=== PATIENT | female | born 1945 | race Caucasian/White ===

== ENCOUNTER 2020-10-21 09:43 | Outpatient (CLI) | payer MEDICARE, BC, SELFPAY ==
--- NOTE | ~2020-10-21 | MM_ITS ---
EXAMINATION: MM screening reji BI w mariela HISTORY: Screening mammogram TECHNIQUE: Craniocaudal and mediolateral oblique 3-D tomosynthesis images were obtained and synthetic 2-D images were generated. CAD analysis was submitted and interpreted. COMPARISON: 05/06/2018 bilateral digital screening mammogram BREAST PARENCHYMAL COMPOSITION: The breasts are almost entirely fatty. FINDINGS: There is no evidence of suspicious mass, calcification, or architectural distortion to sugg est malignancy in either breast. There has been no suspicious interval change. IMPRESSION: 1. No mammographic evidence of malignancy. 2. Recommend routine screening mammography in one year. BI-RADS Category 1: Negative Reviewed, dictated and finalized at location A. HEALTH CARE COORDINATOR
== END 2020-10-21 09:44 | disposition home or self-care (01) ==
LOC: ANHIMG 09:49
PROVIDERS: PCP Internal Medicine; Visit Provider Internal Medicine
DX: Z12.31 Encounter for screening mammogram for malignant neoplasm of breast (principal)
CPT/HCPCS: 77063; 77067

== ENCOUNTER 2021-10-07 13:53 | Outpatient (CLI) | payer MEDICARE, BC, SELFPAY ==
--- NOTE | ~2021-10-07 | CT_ITS ---
EXAMINATION: CT abdomen pelvis w con DATE: 10/07/2021 14:49 INDICATION: Abdominal distention. Left lower quadrant abdominal pain. TECHNIQUE: Computed tomography (CT) of the abdomen and pelvis was performed with 100 mL Omnipaque 350 intravenous contrast. Automated exposure control and iterative reconstruction technique were employe d. The dose-length product was 568.06 mGy-cm. COMPARISON: None. FINDINGS: The visualized portions of the lung bases demonstrate mild atelectasis and mild chronic jing g disease. No pleural effusion. The heart size is normal. No pericardial effusion. There is a small s liding hiatal hernia. There are cysts in the liver measuring up to 6 mm. The gallbladder is normal. C alcifications in the spleen are consistent with old granulomatous disease. The pancreas, adrenal glan ds, and left kidney are normal. There is a 6 mm cyst in right kidney. Pelvic floor relaxation is note d. There are no dilated loops of bowel. The appendix is normal. There are no pathologically enlarged lymph nodes. There is no free intraperitoneal fluid. There is mild lumbar spondylosis. IMPRESSION: 1. Small sliding hiatal hernia. 2. Pelvic floor relaxation. Reviewed, dictated and finalized at location E. DEPARTMENT BATTALION CHIEF
[2021-10-07 14:43] LABS: Estimated Glomerular Filt Rate > 60
== END 2021-10-07 13:54 | disposition home or self-care (01) ==
LOC: ANHIMG 13:58
PROVIDERS: PCP Internal Medicine; Visit Provider Nurse Practitioner Obstetrics & Gynecology
DX: R14.0 Abdominal distension (gaseous) (principal); K44.9 Diaphragmatic hernia without obstruction or gangrene
CPT/HCPCS: 74177; Q9967

== ENCOUNTER 2022-11-16 09:56 | Outpatient (CLI) | payer MEDICARE, BC, SELFPAY ==
--- NOTE | ~2022-11-16 | MM_ITS ---
EXAMINATION: MM screening reji BI w mariela HISTORY: Screening TECHNIQUE: Craniocaudal and mediolateral oblique 3-D tomosynthesis images were obtained and synthetic 2-D images were generated. CAD analysis was submitted and interpreted. COMPARISON: Comparison to multiple prior studies sequentially, with oldest reviewed study dated 05/06. BREAST PARENCHYMAL COMPOSITION: Breast composed of scattered areas of fibroglandular density FINDINGS: There is no evidence of suspicious mass, calcification, or architectural distortion to sugg est malignancy in either breast. There has been no suspicious interval change. IMPRESSION: 1. No mammographic evidence of malignancy. 2. Recommend routine screening mammography in one year. BI-RADS Category 1: Negative Reviewed, dictated and finalized at location A.
== END 2022-11-16 09:57 | disposition home or self-care (01) ==
LOC: ANHIMG 09:58
PROVIDERS: PCP Internal Medicine; Visit Provider Internal Medicine
DX: Z12.31 Encounter for screening mammogram for malignant neoplasm of breast (principal)
CPT/HCPCS: 77063; 77067

== ENCOUNTER 2023-03-09 14:06 | Outpatient (CLI) | payer MEDICARE, BC, SELFPAY ==
[2023-03-09 20:05] LABS: Thyroid Stimulating Hormone < 0.015 uIU/mL (0.465-4.680)
== END 2023-03-09 14:07 | disposition home or self-care (01) ==
LOC: ANHGOSHLAB 14:08
PROVIDERS: PCP Family Medicine; Visit Provider Family Medicine
DX: L65.9 Nonscarring hair loss, unspecified (principal)
CPT/HCPCS: 36415; 84443

== ENCOUNTER 2023-03-14 13:25 | Outpatient (CLI) | payer MEDICARE, BC, SELFPAY ==
[2023-03-14 20:11] LABS: Thyroid Stimulating Hormone < 0.015 uIU/mL (0.465-4.680)
[2023-03-17 08:14] LABS: Thyroid Peroxidase Antibodies 2 IU/mL (<9)
[2023-03-17 12:47] LABS: Thyrotropin Receptor Antibody <1.00 IU/L (<=2.00)
== END 2023-03-14 13:26 | disposition home or self-care (01) ==
LOC: ANHGOSHLAB 13:28
PROVIDERS: PCP Family Medicine; Visit Provider Family Medicine
DX: E05.90 Thyrotoxicosis, unspecified without thyrotoxic crisis or storm (principal)
CPT/HCPCS: 36415; 83519; 84439; 84443; 86376

== ENCOUNTER 2023-04-16 02:43 | Day surgery (SDC) | payer MEDICARE, BC, SELFPAY ==
[2023-03-29 13:04] VITALS: BMI 31.2
--- NOTE | 2023-04-16 06:41 | PM.HPGS ---
History of Present Illness History of Present Illness Consent: Risks, benefits, and alternatives have been discussed and questions answered. Patient agrees to proceed with procedure. Chief complaint: GERD,Dysphagia,Other Chest Pain Narrative: Cathy Anderson is a 78 year old female who was referred because of a persistent sore throat. This began after Thanksgiving last year. Her primary care provider gave her prescription for pantoprazole which he took for 30 days without any benefit. She then went to see an ENT physician who examined her briefly in the office. He did not use a scope but looking in the back of her throat he told her that her problem was gastrointestinal. She does not get heartburn. Rarely feels dysphagia in that she will feel of slight tightness in her chest during the meal when she is eating. She never however has had to stop eating. She does not regurgitate at night. Occasionally pills will seem to get stuck in the back of her throat when she is swallowing. She was restarted on pantoprazole by her new primary care provider and to get for another 30 days without any improvement. 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 Surgical History Surgical History H/O abdominal hysterectomy (~2005) Total knee replacement status (~2018) Social History Social History Smoking status: Never smoker Lack of Transportation: No Lack of Food: Never True Current Housing: I Have Housing Concerned About Future Housing: No Difficulty Paying Gas/Electric Bills: No Difficulty Paying for Meds: No Currently Unemployed: No Education: Trade/Vocational Certificate Difficulty w/ Childcare or Family Care: No Living arrangements: with family Spiritual care concerns: No Meds Home Medications and Allergies Home Medications Medication Instructions Recorded Confirmed Type pantoprazole 40 mg tablet,delayed 40 mg PO QAM #90 tabs 03/08/23 04/16/23 Rx release aspirin 81 mg tablet,delayed 81 mg PO DAILY 03/28/23 03/29/23 History release (Yari Low Dose Aspirin) biotin 5,000 mcg chewable tablet 5,000 mcg PO DAILY 03/28/23 03/29/23 History cholecalciferol (vitamin D3) 50 50 mcg PO DAILY 03/28/23 03/29/23 History mcg (2,000 unit) capsule docusate sodium 50 mg capsule 100 mg PO BID 03/28/23 03/29/23 History magnesium 250 mg tablet 250 mg PO DAILY 03/28/23 03/29/23 History Prevagen 1 tablet PO DAILY 03/29/23 03/29/23 History Vital Proteins Collagen 2 tbsp PO DAILY 03/29/23 03/29/23 History Viviscal Hair Growth 2 tablet PO DAILY 03/29/23 03/29/23 History lactobacillus combination no.8 3 1 cell PO DAILY 03/29/23 04/16/23 History billion cell capsule multivitamin with minerals 2 tablet PO DAILY 03/29/23 03/29/23 History (Hair,Skin and Nails tablet) vitamin E 400 unit tablet 45 mg PO DAILY 03/29/23 03/29/23 History Allergies Allergy/AdvReac Type Severity Reaction Status Date / Time Sulfa (Sulfonamide Allergy Intermediate Hives Verified 04/16/23 11:02 Antibiotics) Exam Const: General: alert Orientation/consciousness: patient oriented x3 Resp: Auscultation: clear to auscultation bilaterally Cardio: Rhythm: regular rhythm GI: GI Palp: Yes Soft to palpation and No Tenderness to palpation present (GI) Neuro: General: patient oriented x3 Assessment and Plan Assessment and plan (1) Dysphagia: Qualifiers: Dysphagia type: pharyngoesophageal phase Qualified Code(s): R13.14 - Dysphagia, pharyngoesophageal phase Code(s): R13.10 - Dysphagia, unspecified Status: Acute Assessment and Plan: EGD with possible biopsy or dilat
[2023-04-16 11:04] VITALS: BP 153/72; PULSE 79; RESP 17; TEMP 36.4; O2SAT 100
[2023-04-16] MEDS: LACTATED RINGERS 1,000 ML 150 ML IV CONT (11:09)
--- NOTE | 2023-04-16 11:57 | WPDANESEPPF ---
Anes - Initial Pre Proc Eval Procedure: Operation Date: 04/16/23 12:30 Proposed Procedures p Esophagogastroduodenoscopy - Rafal Lopez MD Date/Time: 04/16/23 11:57 Surgeon: Rafal Lopez MD Pre Op Diagnosis: GERD,Dysphagia,Other Chest Pain Patient Data Age: 78 Gender: F Height: 1.6 m Weight: 78.6 kg Last Vital Signs Temp 36.4 C 04/16/23 11:04 Pulse 79 04/16/23 11:04 Resp 17 04/16/23 11:04 BP 153/72 H 04/16/23 11:04 Pulse Ox 100 04/16/23 11:04 O2 Del Method Room Air 04/16/23 11:04 Allergies Allergy/AdvReac Type Severity Reaction Status Date / Time Sulfa (Sulfonamide Allergy Intermediate Hives Verified 04/16/23 11:02 Antibiotics) Home Medications Medication Instructions Recorded Confirmed Type pantoprazole 40 mg tablet,delayed 40 mg PO QAM #90 tabs 03/08/23 04/16/23 Rx release aspirin 81 mg tablet,delayed 81 mg PO DAILY 03/28/23 03/29/23 History release (Yari Low Dose Aspirin) biotin 5,000 mcg chewable tablet 5,000 mcg PO DAILY 03/28/23 03/29/23 History cholecalciferol (vitamin D3) 50 50 mcg PO DAILY 03/28/23 03/29/23 History mcg (2,000 unit) capsule docusate sodium 50 mg capsule 100 mg PO BID 03/28/23 03/29/23 History magnesium 250 mg tablet 250 mg PO DAILY 03/28/23 03/29/23 History Prevagen 1 tablet PO DAILY 03/29/23 03/29/23 History Vital Proteins Collagen 2 tbsp PO DAILY 03/29/23 03/29/23 History Viviscal Hair Growth 2 tablet PO DAILY 03/29/23 03/29/23 History lactobacillus combination no.8 3 1 cell PO DAILY 03/29/23 04/16/23 History billion cell capsule multivitamin with minerals 2 tablet PO DAILY 03/29/23 03/29/23 History (Hair,Skin and Nails tablet) vitamin E 400 unit tablet 45 mg PO DAILY 03/29/23 03/29/23 History Patient hx anesthesia problems: none Family hx anesthesia problems: none Results Review: All pre-operative results and documents have been reviewed as part of the pre-operative evaluation. 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 Surgical History Surgical History H/O abdominal hysterectomy (~2006) Total knee replacement status (~2019) Social History Social History Smoking status: Never smoker Lack of Transportation: No Lack of Food: Never True Current Housing: I Have Housing Concerned About Future Housing: No Difficulty Paying Gas/Electric Bills: No Difficulty Paying for Meds: No Currently Unemployed: No Education: Trade/Vocational Certificate Difficulty w/ Childcare or Family Care: No Living arrangements: with family Spiritual care concerns: No Anes - Eval Final PreProcedure Day of Procedure 04/16/23 11:57 Patient weight: overweight Heart: regular rate and rhythm Lungs: clear to auscultation Airway: Mallampati scale class II Neurological: alert and oriented Last oral intake: >/= 8 hours ASA classification: II Emergent: no Anesthetic plan: proceed Anesthesia type and monitoring: general GIVS and standard monitoring Results Review: All pre-operative results and documents have been reviewed as part of the pre-operative evaluation. Informed Consent: The patient's anesthetic plan and its attendant risks and benefits were discussed with the patient/family/POA. Questions were solicited and answers provided to the satisfaction of the patient/family/POA.
[2023-04-16 12:41] VITALS: BP 122/66; PULSE 71; RESP 17; O2SAT 100
[2023-04-16 12:51] VITALS: BP 122/63; PULSE 88; RESP 17; O2SAT 100
[2023-04-16 13:01] VITALS: BP 126/65; PULSE 71; RESP 17; O2SAT 100
== END 2023-04-16 13:05 | disposition home or self-care (01) ==
PROVIDERS: PCP Family Medicine; Visit Provider Internal Medicine Gastroenterology
PROC: 0DJ08ZZ Inspection of Upper Intestinal Tract, Via Natural or Artificial Opening Endoscopic (ICD-10-PCS; CPT 43235; principal; 2023-04-16 12:30)
DX: K22.70 Barrett's esophagus without dysplasia (principal); K29.50 Unspecified chronic gastritis without bleeding; K31.7 Polyp of stomach and duodenum; K29.70 Gastritis, unspecified, without bleeding; Z79.82 Long term (current) use of aspirin
CPT/HCPCS: 43239; 88305; J2704; J7120

== ENCOUNTER 2023-05-10 14:27 | Outpatient (CLI) | payer MEDICARE, BC, SELFPAY ==
[2023-05-10 17:19] LABS: Basophils Absolute Auto 0.1 K/mm3 (0.0-0.1); Basophils Percent Auto 0.9 % (0.2-1.2); Eosinophils Absolute Auto 0.2 K/mm3 (0-0.3); Eosinophils Percent Auto 2.8 % (0-4.4); Hematocrit 42.1 % (37.0-47.0); Hemoglobin 13.4 g/dL (12.0-15.0); Immature Granulocyte Absolute 0.01 K/mm3 (0.00-0.031); Immature Granulocyte Percent A 0.2 % (0-0.5); Lymphocytes Absolute Auto 1.28 K/mm3 (0.9-3.2); Lymphocytes Percent Auto 22.7 % (18.3-44.2); Mean Corpuscular HGB Conc 31.8 g/dl (32-36); Mean Corpuscular Hemoglobin 27.8 pg (26-34); Mean Corpuscular Volume 87.3 fl (80-100); Mean Platelet Volume 11.4 fl (7.4-10.4); Monocytes Absolute Auto 0.5 K/mm3 (0.1-0.6); Neutrophils Absolute Auto 3.7 K/mm3 (1.3-6.7); Neutrophils Percent Auto 65.4 % (45.5-73.1); Platelet Count Result 268 k/mm3 (150-375); Red Blood Count 4.82 M/mm3 (4.2-5.4); Red Cell Distribution Width 13.9 % (11.5-14.5); White Blood Count 5.6 K/mm3 (4.5-10.0)
[2023-05-10 17:43] LABS: Hepatitis C Virus Antibody Negative (Negative)
== END 2023-05-10 14:28 | disposition home or self-care (01) ==
LOC: ANHGOSHLAB 14:30
PROVIDERS: PCP Family Medicine; Visit Provider Family Medicine
DX: R53.83 Other fatigue (principal); L65.9 Nonscarring hair loss, unspecified; Z11.59 Encounter for screening for other viral diseases
CPT/HCPCS: 36415; 82607; 82728; 84443; 85025; 86803

== ENCOUNTER 2023-07-23 11:21 | Outpatient (CLI) | payer MEDICARE, BC, SELFPAY | END 2023-07-23 11:22 | disposition home or self-care (01) | LOC: ANHGOSHLAB 11:23 | PROVIDERS: PCP Family Medicine; Visit Provider Family Medicine | DX: E53.8 Deficiency of other specified B group vitamins (principal) | CPT/HCPCS: 36415; 82607 ==

== ENCOUNTER 2024-01-02 09:13 | Outpatient (CLI) | payer MEDICARE, BC, SELFPAY ==
[2024-01-02 20:54] LABS: Basophils Absolute Auto 0.1 K/mm3 (0.0-0.1); Basophils Percent Auto 0.9 % (0.2-1.2); Eosinophils Absolute Auto 0.2 K/mm3 (0-0.3); Eosinophils Percent Auto 3.5 % (0-4.4); Hematocrit 44.3 % (37.0-47.0); Hemoglobin 13.8 g/dL (12.0-15.0); Immature Granulocyte Absolute 0.01 K/mm3 (0.00-0.031); Immature Granulocyte Percent A 0.2 % (0-0.5); Mean Corpuscular HGB Conc 31.2 g/dl (32-36); Mean Corpuscular Hemoglobin 27.3 pg (26-34); Mean Corpuscular Volume 87.5 fl (80-100); Mean Platelet Volume 11.8 fl (7.4-10.4); Monocytes Absolute Auto 0.7 K/mm3 (0.1-0.6); Monocytes Percent Auto 11.6 % (2.6-8.5); Neutrophils Absolute Auto 3.4 K/mm3 (1.3-6.7); Neutrophils Percent Auto 57.8 % (45.5-73.1); Platelet Count Result 275 k/mm3 (150-375); Red Blood Count 5.06 M/mm3 (4.2-5.4); Red Cell Distribution Width 14.3 % (11.5-14.5); White Blood Count 5.8 K/mm3 (4.5-10.0)
[2024-01-02 21:03] LABS: Alanine Aminotransferase 17 U/L (6-35); Albumin Level 4.5 g/dL (3.5-5.1); Alkaline Phosphatase 73 U/L (38-126); Anion Gap 7 mmol/L (4-12); Aspartate Amino Transferase 28 U/L (14-36); Bilirubin,Total 0.6 mg/dL (0.2-1.3); Blood Urea Nitrogen 19 mg/dL (7-17); Calcium 10.6 mg/dL (8.4-10.2); Carbon Dioxide 28 mmol/L (22-30); Chloride 104 mmol/L (98-107); Cholesterol 204 mg/dL (0-200); Estimated Glomerular Filt Rate > 60; Glucose 93 mg/dL (65-110); HDL Direct 74 mg/dL; Potassium 4.9 mmol/L (3.4-5.0); Sodium 139 mmol/L (137-145); Triglycerides 93 mg/dL (<150)
[2024-01-02 21:14] LABS: LDL Cholesterol Direct 103 mg/dL
== END 2024-01-02 09:14 | disposition home or self-care (01) ==
LOC: ANHGOSHLAB 09:15
PROVIDERS: PCP Family Medicine; Visit Provider Family Medicine
DX: E53.8 Deficiency of other specified B group vitamins (principal); R13.14 Dysphagia, pharyngoesophageal phase; Z00.00 Encounter for general adult medical examination without abnormal findings; Z68.33 Body mass index [BMI] 33.0-33.9, adult; E66.9 Obesity, unspecified
CPT/HCPCS: 36415; 80053; 80061; 82607; 84443; 85025

== ENCOUNTER 2024-04-23 11:01 | Outpatient (CLI) | payer MEDICARE, BC, SELFPAY ==
[2024-04-24 22:58] LABS: Hexagonal Phase Confirm NEGATIVE (NEGATIVE); Lupus dRVVT Screen 33 sec (< OR = 45); PTT-LA Screen 42 sec (< OR = 40)
[2024-04-25 12:24] LABS: Homocysteine 11.4 umol/L (<10.4)
[2024-04-26 06:13] LABS: Antithrombin III Activity 103 % normal (80-135)
[2024-04-29 11:23] LABS: Protein S Antigen, Free 109 % normal (50-147)
[2024-04-29 14:46] LABS: Hex Phase Conf Chg Test Yes
== END 2024-04-23 11:02 | disposition home or self-care (01) ==
LOC: ANHLAB 11:04
PROVIDERS: PCP Family Medicine; Visit Provider Internal Medicine Hematology & Oncology
DX: Z86.718 Personal history of other venous thrombosis and embolism (principal)
CPT/HCPCS: 36415; 83090; 85300; 85303; 85306; 85598; 85613; 85730; 86146

== ENCOUNTER 2024-05-07 09:34 | Outpatient (CLI) | payer MEDICARE, BC, SELFPAY ==
--- NOTE | ~2024-05-07 | US_ITS ---
EXAMINATION: US venous doppler [facility] DATE: 05/07/2024 10:29 INDICATION: Left lower limb pain. TECHNIQUE: Grayscale ultrasound images without and with compression and Doppler ultrasound images of the bilateral lower extremity veins were obtained. COMPARISON: None. FINDINGS: The visualized portions of right common femoral vein, profunda (deep) femoral vein, femoral vein, pop liteal vein, posterior tibial veins, peroneal veins, gastrocnemius vein and greater saphenous vein ou tflow are patent. The visualized portions of left common femoral vein, profunda femoral vein, femoral vein, popliteal v ein, posterior tibial veins, peroneal veins, gastrocnemius vein and greater saphenous vein outflow ar e patent. IMPRESSION: 1. No deep venous thrombosis in either lower limb. Reviewed, dictated and finalized at location B.
== END 2024-05-07 09:35 | disposition home or self-care (01) ==
PROVIDERS: PCP Family Medicine; Visit Provider Internal Medicine Hematology & Oncology
DX: Z86.718 Personal history of other venous thrombosis and embolism (principal)
CPT/HCPCS: 93970

== ENCOUNTER 2024-05-16 13:10 | Outpatient (CLI) | payer MEDICARE, BC, SELFPAY ==
--- NOTE | ~2024-05-16 | DEXA_ITS ---
Bone Density Report Name: POLLY MART Age: 79 Sex: Female Ethnicity: White Date of : 1945 Indication: postmenopausal; screening for osteoporosis; height loss; history of glucocorticoids; asthma or emphysema; hysterectomy; Referring Provider: ALESSANDRO SETH Study: Bone densitometry was performed. Exam Date: May 16, 2024 Accession number: [id number] Bone Density: Region BMD T-score Z-score Classification AP Spine(L1-L4) 0.775 -2.5 0.0 Osteoporosis Femoral Neck (Left) 0.677 -1.6 0.6 Osteopenia Total Hip (Left) 0.952 0.1 2.0 Normal Femoral Neck (Right) 0.751 -0.9 1.3 Normal Total Hip (Right) 0.956 0.1 2.0 Normal Total Hip Mean 0.954 0.1 2.0 Normal World Health Organization criteria for BMD impression classify patients as: Normal (T-score at or above -1.0), Osteopenia (T-score between -1.0 and -2.5), or Osteoporosis (T-score at or below -2.5). 10-year Fracture Risk: FRAX not reported because: Some T-score for Spine Total or Hip Total or Femoral Neck at or below -2.5 Clinical Information Provided by Patient: Has taken Glucocorticoids Has used the following medications: Vitamin D, Calcium Has the following medical conditions: Asthma or Emphysema, Hysterectomy Patient maximum height was 64 Menopause Age: 47 No regular weight bearing exercise Does not regularly consume dairy products Drinks caffeinated beverages Onset of menses at age 14 Impression: The patient has osteoporosis, based on the Total Spine T-score. The patient has risk factors, including: history of glucocorticoid therapy. Discussion: INCREASED RISK OF FRACTURE. BONE DENSITY IS UNDESIRABLY LOW AT ONE OR MORE SKELETAL SITES, CONSISTENT WITH POSTMENOPAUSAL OSTEOPOROSIS. This patient's lowest T-score meets the World Health Organization's (WHO) criteria for osteoporosis at one or more sites (T-score -2.5 or below). In untreated patients, the risk of osteoporotic fracture increases approximately two-fold for each 1.0 SD decrease in T-score. Low bone density is not the only risk factor for fracture; also consider factors such as patient's age, frailty or poor health, risk of falling, risk of injury, previous osteoporotic fracture, family history of osteoporosis, cigarette smoking, low body weight, etc. Not everyone with low bone mineral density has osteoporosis; osteomalacia and other metabolic bone disorders should also be considered. Patients who have osteoporosis should be evaluated for specific diseases and conditions (secondary causes) that may cause or contribute to bone loss. The [place] [employer] Endocrinologists (AACE) and National Osteoporosis Foundation (NOF) recommend pharmacologic intervention for all postmenopausal women whose T-score is in this range. The patient should follow a health
== END 2024-05-16 13:11 | disposition home or self-care (01) ==
LOC: ANHIMG 13:11
PROVIDERS: PCP Family Medicine; Visit Provider Family Medicine
DX: Z78.0 Asymptomatic menopausal state (principal); Z13.820 Encounter for screening for osteoporosis; M81.0 Age-related osteoporosis without current pathological fracture; M85.852 Other specified disorders of bone density and structure, left thigh
CPT/HCPCS: 77080

== ENCOUNTER 2024-12-05 08:03 | Outpatient (CLI) | payer MEDICARE, BC, SELFPAY ==
--- NOTE | ~2024-12-05 | MM_ITS ---
EXAMINATION: MM screening reji BI w mariela HISTORY: Screening TECHNIQUE: Craniocaudal and mediolateral oblique 3-D tomosynthesis images were obtained and synthetic 2-D images were generated. CAD analysis was submitted and interpreted. COMPARISON: Comparison to multiple prior studies sequentially, with oldest reviewed study dated 05/06. BREAST PARENCHYMAL COMPOSITION: Not Dense: The breasts are almost entirely fatty. FINDINGS: There is no evidence of suspicious mass, calcification, or architectural distortion to sugg est malignancy in either breast. There has been no suspicious interval change. IMPRESSION: 1. No mammographic evidence of malignancy. 2. Recommend routine screening mammography in one year. BI-RADS Category 1: Negative Reviewed, dictated and finalized at location A.
--- OUTSIDE RECORDS SUMMARY | 2024-12-05 08:07 | XMS_ITS | CONTINUITY OF CARE DOCUMENT ---
Author Name rush, rush Address Unknown Organization [facility] Address [address] [facility] [address] [place] [address] Phone [phone] Care Team Providers Care Disassembler Name Role Phone Dale Hyde MD Unavailable TOMASZ LIRA MD Unavailable TOMASZ LIRA MD Unavailable [phone] PROBLEMS Condition Status Date Provider Notes Other symptoms involving car diovascular system active Dale Hyde MD Chest pain active Dale Hyde MD Heartburn active Dale Hyde MD Leg weakness, bilateral active Dale Hyde MD Altered consciousness, potential TIA active Mario Flores MD High blood pressure active Dale Hyde MD ENCOUNTERS Date Type Provider Location Encounter Diag nosis - In-person encounter Office Visit Dale Hyde MD [facility] High blood pressure - In-person encounter Office Visit Dale Hyde MD [facility] - In-person encounter Office Visit Dale Hyde MD [facility] - In-person encounter Office Visit Mario Flores MD [facility] Altered consciousness, potential TIA - In-person encounter Office Visit Dale Hyde MD [facility] - In-person encounter Office Visit Dale Hyde MD [facility] - In-person encounter Office Visit Dale Hyde MD [facility] - In-person encounter Office Visit Dale Hyde MD [facility] Other symptoms involving cardiovascular systemChest painHeartburnLeg weakness, bilateral VITAL SIGNS Date Observation Value Provider Body Mass Index (Ratio) 28.49 kg/m2 Jada Hyde MD blood pressure, diastolic 96 mm[Hg] Da mana Ale blood pressure, systolic 158 mm[Hg] Dac ia Ale oxygen saturation, oximetry 97 % Loli Ale respiratory rate E&M 18 /min Loli V oss pulse rate 100 /min Loli Ale weight E&M 166 [lb_av] Loli Ale height E&M 64 [in_i] Loli [place] Body Mass Index (Ratio) 27.80 kg/m2 Jada Hyde MD blood pressure, diastolic 70 mm[Hg] [facility], systolic 120 mm[Hg] Gurvinder barton [place] oxygen saturation, oximetry 92 % [facility] respiratory rate E&M 16 /min [facility] 73 /min [facility] weight E&M 162 [lb_av] Elena Reed height E&M 64 [in_i] [facility] Body Mass Index (Ratio) 27.29 kg/m2 Jada Hyde MD blood pressure, cuff size large Ke rri Bong blood pressure, diastolic 80 mm[Hg] Ke rri Bong blood pressure, systolic 130 mm[Hg] Yesika Woody oxygen saturation, oximetry 98 % Norma Woody respiratory rate E&M 18 /min Norma villatoro pulse rate 78 /min Norma Goodson lder weight E&M 159 [lb_av] Norma Goodson lder height E&M 64 [in_i] Norma Goodson lder Body Mass Index (Ratio) 26.95 kg/m2 Tim Plurad blood pressure, cuff size regular Cy olvin Weaver blood pressure, diastolic 80 mm[Hg] Cy olvin Weaver blood pressure, systolic 150 mm[Hg] Praveena emma Weaver oxygen saturation, oximetry 97 % Betty Weaver respiratory rate E&M 18 /min Bettyemma Weaver pulse rate 67 /min Bettyemma Mcbride l weight E&M 157 [lb_av] Betty Campbel l height E&M 64 [in_i] Betty Campbel l Body Mass Index (Ratio) 31.96 kg/m2 Jada Hyde MD blood pressure, resting No Nasreen Carmona blood pressure, diastolic 84 mm[Hg] Ofelia Carmona blood pressure, systolic 137 mm[Hg] Jena Carmona oxygen saturation, oximetry 98 % Susana Carmona respiratory rate E&M 18 /min David Carmona pulse rate 88 /min Susana morrison weight E&M 186.2 [lb_av] Susana meyer height E&M 64 [in_i] Susana morrison blood pressure, diastolic 70 mm[Hg] Ofelia Carmona blood pressure, systolic 130 mm[Hg] eJna Carmona pulse rate 78 /min Susana morrison oxygen saturation, oximetry 97 % Susana Carmona respiratory rate E&M 16 /min David Carmona Body Mass Index (Ratio) 31.75 kg/m2 Nasreen Carmona weight E&M 185 [lb_av] Susana morrison blood pressure, diastolic 81 mm[Hg] Ofelia Carmona blood pressure, systolic 142 mm[Hg] Jena Carmona pulse rate 80 /min Susana morrison oxygen saturation, oximetry 93 % Susaan Carmona respiratory rate E&M 16 /min David Carmona Body Mass Index (Ratio) 32.40 kg/m2 Nasreen Carmona weight E&M 188.8 [lb_av] Susana meyer blood pressure, diastolic 82 mm[Hg] Me coates Bravo blood pressure, systolic 148 mm[Hg] Karely reyes Bravo pulse rate 74 /min Rosalva Bravo oxygen saturation, oximetry 98 % Rosalva Bravo respiratory rate E&M 14 /min Rosalva Bravo Body Mass Index (Ratio) 32.78 kg/m2 Ekaterina michelle Bravo height E&M 64 [in_i] Rosalva Bravo weight E&M 191 [lb_av] Rosalva Bravo ALLERGIES Allergy Name Onset Date Reaction Criticality Status SULFA Low Criticality active RESULTS Date Observation Value Provider Reference Range Interpretation Location rapid plasma reagin antibody, serum NON-REACTIVE [facility] NON-REACTIVE Normal folate, serum 18.4 ng/mL [facility] Normal B-12, serum 1213 pg/mL [facility] 200-1100 High prothrombin time (patient) 10.0 s [facility] 9.0-11.5 Normal international normalized ratio (INR) 1.0 [facility] Normal basophils as percent of blood leukocytes 0.9 % [facility] Normal eosinophils as percent of blood leukocytes 3.3 % [facility] Normal monocyte count, blood 8.3 % [facility] Normal lymphocyte count, blood 35.0 % [facility] Normal neutrophils as percent of blood leukocytes 52.5 % [facility] Normal basophils, absolute, manual 41 cells/mcL [facility] 0-200 Normal eosinophils, absolute, manual 152 cells/mcL [facility] 15-500 Normal monocytes, absolute, manual 382 cells/mcL [facility] 200-950 Normal lymphocytes, absolute 1610 CELLS/UL [facility] 850-3900 Normal Absolute Neutrophil count 2415 cells/mcL [facility] 6393-1974 Normal mean platelet volume 10.6 fL [facility] 7.5-12.5 Normal platelet count 257 THOUSAND/UL [facility] 140-400 Normal red blood cell distribution width 12.8 % [facility] 11.0-15.0 Normal mean corpuscular hemoglobin concentration, RBC 33.2 G/DL [facility] 32.0-36.0 Normal mean corpuscular hemoglobin, RBC 27.7 pg [facility] 27.0-33.0 Normal mean corpuscular volume, RBC 83.6 fL [facility] 80.0-100.0 Normal hematocrit, blood 43.4 % [facility] 35.0-45.0 Normal hemoglobin electrophoresis, blood 14.4 [facility] 11.7-15.5 Normal erythrocyte (RBC) count 5.19 MILLION/UL [facility] 3.80-5.10 High leukocyte (white blood cells) count, blood 4.6 THOUSAND/UL [facility] 3.8-10.8 Normal calcium, serum 9.6 mg/dL [facility] 8.6-10.4 Normal carbon dioxide, venous blood 32 mmol/L [facility] 20-32 Normal chloride, serum 104 mmol/L [facility] 98-110 Normal potassium, serum 4.2 mmol/L [facility] 3.5-5.3 Normal sodium, serum 140 mmol/L [facility] 135-146 Normal urea nitrogen/creatinine ratio, serum NOT APPLICABLE (calc) [facility] 6-22 Estimated Glomerular Filtration Rate (calc) 97 mL/min/{1.73_ m2} [facility] > OR = 60 Normal creatinine, serum 0.73 mg/dL [facility] 0.60-0.93 Normal urea nitrogen, blood 19 mg/dL [facility] 7-25 Normal blood glucose, random 97 mg/dL [facility] 65-99 Normal thyroid stimulating hormone, serum 2.12 u[IU]/mL [facility] 0.40-4.50 Normal free thyroxine index 2.3 [facility] 1.4-3.8 Normal thyroxine, serum, total 7.3 ug/dL [facility] 5.1-11.9 Normal triiodothyronine resin uptake 31 % [facility] 22-35 Normal cholesterol, non-HDL, total 134 MG/DL (CALC) [facility] <130 High cholesterol/HDL ratio, serum, percent 2.8 (calc) [facility] <5.0 Normal LDL cholesterol, serum 117 MG/DL (CALC) [facility] High triglyceride, serum, fasting 76 mg/dL [facility] <150 Normal HDL cholesterol, serum 75 mg/dL [facility] >50 Normal cholesterol, serum 209 mg/dL [facility] <200 High HISTORY OF MEDICATION USE Medication Status Instructions Dates Provider Indications Com ments PROBIOTIC active once daily Susana Carmona MAGNESIUM CAPSULE active once daily Susana Carmona STOOL SOFTENER CAPSULE completed 2 tabs twice daily - 4 Elena Reed NAPROXEN 500 MG ORAL TABLET completed twice daily - 7 Susana Carmona PROTONIX 40 MG ORAL TABLET DELAYED RELEASE completed ONE TAB. DAILY 4 - 3 Susana Carmona VITAMIN B-12 2500 MCG TABS (CYANOCOBALAMIN ) active One tablet daily 4 Rosalva Bravo GINKOBA TABLET active once daily 4 Rosalva Bravo TURMERIC CURCUMIN 500 MG ORAL CAPSULE completed twice daily 4 - 7 Susana Carmona [facility] STOOL SOFTENER 100 MG ORAL CAPSULE active 2 tabs 2x daily 4 Elena Reed COLLAGEN PLUS VITAMIN C CAPSULE completed three times daily 4 - 0 Betty Owen GABAPENTIN 100 MG ORAL CAPSULE active 2 tabs 2x daily 4 Elena Reed VITAMIN D TABLET active 2000 international units daily 4 Rosalvaeric Shineann ASPIRIN 81 MG ORAL TABLET active ONE TAB. DAILY 4 Dale Hyde MD BIOTIN 5000 CAPSULE completed once daily 4 - 7 Susana Carmona SOCIAL HISTORY Date Observation Value Provider social history E&M Patient has n ever smoked. Smoking History: P atasim has never smoked. Dale Hyde MD social history reviewed E&M revi ewed - no changes required Dale Hyde MD seatbelt usage 100 % [facility] exercise type housework Loli Ale physical exercise, f requency, days per week daily Loli [place] smoking status Never smoker [facility] exercise type housework Jasmin hermosillo physical exercise, f requency, days per week daily Jasmin Watson seatbelt usage 100 % Jasmin armenta smoking status Never smoker Jasmin armenta seatbelt usage 100 % Jasmin armenta smoking status Never smoker Jasmin armenta seatbelt usage 100 % Jasmin armenta smoking status Never smoker Jasmin armenta social history E&M Patient has n ever smoked. Smoking History: P atasim has never smoked. Dale Hyde MD social history reviewed E&M revi ewed - no changes required Dale Hyde MD number of grandchildren Dalenedra Reed smoking status Never smoker Elena Luisa farley smoking status Never smoker Norma Aamirariellatam donahue number of grandchildren Mario Flores MD social history E&M Patient has n ever smoked. Smoking History: P evelina has never smoked. Mario Flores MD social history reviewed E&M revi ewed - no changes required Mario Flores MD smoking status Never smoker Betty Weirdarien rowe number of grandchildren Dale Hyde MD U rian Hyde MD social history reviewed E&M revi ewed - no changes required Dale Hyde MD smoking status Never smoker Susana Whitlock social history reviewed E&M revi ewed - no changes required Dale Hyde MD smoking status Never smoker Susana Whitlock social history reviewed E&M revi ewed - no changes required Dale Hyde MD smoking status Never smoker Susana Whitlock social history E&M Patient has n ever smoked. Smoking History: P evelina has never smoked. Dale Hyde MD social history reviewed E&M revi ewed - no changes required Dale Hyde MD smoking status Never smoker Dale Hyde MD FAMILY HISTORY Family Member Condition Mother Family History of Co ronary Artery Disease: INSURANCE PROVIDERS Payer name Policy type / Coverage type [place] [employer] party ID [facility] [id number] [place] Medicare [id number] ADVANCE DIRECTIVES Name Date DISCUSSED - NO DECISION MADE TREATMENT PLAN Date Name Performer Cardiology follow up :patient reports rushing around today and to get into appointment today. BP today: 158/96 P rior BP: 120/70 (05/10/2018) Dale Hyde MD Cardiology follow up Dale farley MD Cardiology follow up Dale Qayyu m MD Cardiology Dale Hyde MD Cardiology:she is s/ p cath that showed no angiographic CAD. Unknown what the cause is although could be GI. Dale Hyde MD Cardiology Follow u p Dale downing MD Cardiology Follow u p:She has typical chest pain and even though her stress test was unremarkable she may have triple vessel or balanced ischemia. The risks and benefits of the procedure, including but not limited the risk of heart attack, , stroke, bleeding, kidney failure, and loss of limb as well as the alternative of continued medical therapy, stress testing or bypass surgery were discussed with the patient and any present family members and the patient wishes to proceed with cardiac cath and stenting. The patient and family had opportunity to discuss this with us. Written material including informed consent was given out. Dale Hyde MD Cardiology Follow up :Hx. acid reflux. Doubt that these symptoms were reflux related. Will obtain Lexiscan stress test. Maroi Flores MD Cardiology Follow up :Head CT will be done. FMHx. dementia. Check sleep study since she has frequent forgetfullness and daytime memory loss. Mario Flores MD Cardiology Follow up :Had a normal stress test before. CP symptoms now. EKG unremarkable compared to baseline. Mario Flores MD Cardiology:No further chest pain . Dale Hyde MD Cardiology Dale Hyde MD Cardiology Dale Hyde MD Cardiology: She had discomfort in her chest. Had a stress test that was negative. She was put on protonix and this alleviated her symptoms. I am going to have her stop her protonix and see whether the symptoms come back or not. If they do she can either take tums or restart protonix. Dale Hyde MD Cardiology:Protonix alleviated her symptoms. Would recommend patient see a tour counselor for further work-up. Dale Hyde MD Cardiology:Stress te st (11/11/2015) S ummary 1 . Myocardial scintigraphy is normal without evidence for previous myocardial infarction or reversible ischemia. 2 . Normal left ventricular size and function with a calculated ejection fraction of 57%. 3 . Moderately impaired exercise capacity The patient achieved 111% of age predicted maximal heart rate. No chest pain. Dale Hyde MD Cardiology: W ill get stress test. Dale Hyde MD Date Name LIPID PANEL PROTHROMBIN TIME WIT H INR VITAMIN B12/FOLATE, SERUM PANEL RPR (MONITOR) W/REFL TITER THYROID PANEL WITH T SH, 3RD GENERATION BASIC METABOLIC PANE L W/EGFR CBC (INCLUDES DIFF/P LT) Sleep Study Cardiac Cath - Left - CNE STR - Adenosine Sleep Study Home CT Head without cont rast Carotid Duplex Bilat eral Complete Echo Holter Monitor 24 Hr Complete Echo STR - Nuclear HISTORY OF PROCEDURES Procedure Date Procedure Name Provider Procedure Notes S tatus Cardiolite, 2 units Dale Hyde MD completed SPECT Images Humble Pfeiffer MD complet ed Stress EKG Humble Pfeiffer MD completed Holter, 24 or 48 Dale Hyde MD com pleted SNOMED-CT: 72719420 Physical Exam, Performed: Pulse Exam of Foot Dale Hyde MD completed EKG Dale Hyde MD completed SNOMED-CT: 808655942 382883 Current Medications Documented Dale Hyde MD completed SNOMED-CT: 91858622 Physical Exam, Performed: Pulse Exam of Foot Dale Hyde MD completed SNOMED-CT: 763567355 527184 Current Medications Documented Dale Hyde MD completed SNOMED-CT: 87520012 Physical Exam, Performed: Pulse Exam of Foot Dale Hyde MD completed SNOMED-CT: 792546879 542545 Current Medications Documented Dale Hyde MD completed Stress EKG Clif Amaya MD complete d Cardiolite, 2 units Mario case MD completed SPECT Images Mario Flores MD completed SNOMED-CT: 43199796 Physical Exam, Performed: Pulse Exam of Foot Dale Hyde MD completed EKG Dale Hyde MD completed SNOMED-CT: 013139943 689618 Current Medications Documented Dale Hyde MD completed
--- OUTSIDE RECORDS SUMMARY | 2024-12-05 08:07 | XMS_ITS | Continuity of Care Document ---
Author Organization [facility] Address [address] [place] [address] [address] [place] [address] Phone Care Team Providers Care Charge Histotechnologist Name Role Phone Elizabeth Herring Unavailable Unavailable Procedures Procedure Date Eye Exam Established Pt Office/outpatient Visit, Est Advance Directives Directive Yes / No Effective Date File Name No Information Encounters Encounter Description Practice Location Reason(s) For Visit Diagnoses Date Provider Providers Copied on Encounter [facility], [address] [place] [address] [address], [place], [place], [id number], tel:[phone] [facility] No Information [id number] 0 Nevaeh Johnson. [address] [facility] , [address], [place], [place], [facility], . tel:[phone] Office/outpat ient Visit, Est [facility], [address] [place] [address] [address], [place], [place], [id number], tel:[phone] [facility] [place] No Information 7-200 7 Nevaeh Louise [address] [facility] , [address], [place], [address], [place]. tel:[phone] Family History Family Member Type Diagnosis Age [...]
--- OUTSIDE RECORDS SUMMARY | 2024-12-05 08:07 | XMS_ITS | Clinical Summary ---
Author Organization [facility] Address [address] [place] [address] Phone Care Team Providers Care Mud Mixer Operator Name Role Phone Unavailable Primary Care Provider Unavailabl e Social History Tobacco Use Types Packs/Day Years Used Date Smoking Tobacco: Never Assessed Comments Unknown Sex and Gender Information Value Date Recorded Sex Assigned at Not on file Legal Sex Female 7:38 AM CDT Gender Identity Not on file Sexual Orientation Not on file Plan of Treatment Health Maintenance Due Date Last Done Comments DEXA Bone Density 1945 Hepatitis C Virus (HCV) Screening 1945 TdaP Immunization 1945 Zoster Immunization (1 of 2) 1997 Pneumococcal Immunization (50+ years) (2 of 2 - PPSV23) 06/14/2016 06/14/2015 Respiratory Syncytial Virus (RSV) Immunization (Adult) (1 - 1-dose 75+ series) 2022 Influenza Immunization (#1) 04/27/202405/27, 06/02/2015, 07/09/2014, Additional history exists SARS-COV-2 Immunization ( season) 2024 06/27/2021, 11/14/2020, 10/24/2020 Hepatitis B Immunization Aged Out No longer eligible based on patient's age to complete this topic Meningococcal Immunization (ACWY) Aged Out No longer eligible based on patient's age to complete this topic Rotavirus Immunization Aged Out No lo nger eligible based on patient's age to complete this topic
--- OUTSIDE RECORDS SUMMARY | 2024-12-05 08:08 | XMS_ITS | Clinical Summary ---
Author Organization [facility] Address [address] [place] [address] Care Team Providers Care Ict Support Engineer Name Role Phone Stew Phan MD Unavailable [phone] Lashae Patel MD Primary Care Provider [phone] Source Comments [facility],non-owned Affiliates and Associated Physician Practices is amultiple site organization consisting of ambulatory clinics and hospital sitesin [place], [place], [place] and [place]. This disclosure is being madepursuant to the Care Everywhere program and may not contain all information available regarding this patient. Last updated 18.[facility] Allergies Active Allergy Reactions Criticality Noted Date Comments Levofloxacin Rash Medium 07/22/2019 Sulfamethoxazole Unknown 05/21/2011 Trimethoprim Unknown 05/21/2011 Medications * Be aware that medications may not be up to date on this document. Always verify current medications with the patient. Medication Sig Dispensed Refills Start Date End Date Status magnesium 250 MG tablet every 24 hours Active Vitamin D3, cholecalciferol, 50 MCG (1999 UT) tablet Take 1 (one) tablet by mouth once daily Active docusate sodium (COLACE) 100 MG capsule Take 1 (one) capsule by mouth once daily as needed for Constipation Active Ginkgo Biloba (GINKOBA PO) Take 120 mg by mouth Active [place]-3 Krill Oil 500 MG Active Biotin 5000 MCG Active vitamin E (TOCOPHERYL) 400 UNIT tablet Take by mouth once daily Active Other Alteril (sleep aid) Active lactobacillus extra strength (Florajen) capsule Take 1 (one) capsule by mouth once daily Probiotic Active Multiple Vitamins-Mineral s (HAIR SKIN AND NAILS FORMULA PO) Active cyanocobalamin (Vitamin B-12) 1000 MCG tablet Take 1 (one) tablet by mouth once daily Active Apoaequorin (PREVAGEN PO) Active acetaminophen (Tylenol) 500 MG capsule Take 2 (two) capsules by mouth 3 times daily Take 3x/day for 10 days, then as needed for pain 05/28/2024 Active omeprazole (PriLOSEC) 20 MG capsule Take 1 (one) capsule by mouth once daily for 42 days 42 capsule 05/28/2024 Active aspirin EC (Ecotrin) 81 MG tablet Take 1 (one) tablet by mouth once daily Resume once 3 weeks of eliquis is complete 05/29/2024 Active apixaban (Eliquis) 2.5 MG tablet Take 1 (one) tablet by mouth 2 times daily for 21 days 42 tablet 05/29/2024 Active oxyCODONE, immediate release, (Roxicodone) 5 MG tabletIndication s:Post-operative pain Take 1 (one) to 2 (two) tablets by mouth every 4 hours as needed for pain 42 tablet 07/22/2024 Active celecoxib (CeleBREX) 200 MG capsule Take 1 (one) capsule by mouth 2 times daily 180 capsule 2 07/28/2024 Active amoxicillin (Amoxil) 500 MG capsule Take 4 (four) capsules by mouth pre-Procedure once for 1 dose Take 4 pills 1hr prior to dental appointment 12 capsule 1 11/19/2024 11/19/2024 Active Problems Problem Noted Date Diagnosed Date Status post total left knee replacement 05/28/20 24 Primary osteoarthritis of left knee 02/02/2023 History of total right knee replacement 01/15/20 20 Arthritis of knee 10/30/2019 Gastroesophageal reflux disease 07/29/2019 Lesion of ulnar nerve 07/29/2019 Essential hypertension 07/16/2017 Encounters Date Type Department Care Team Description 11/19/2024 Telephone [facility] [address] [place] [address], [address] [address] Stew Phan MD Patient Requested Call (patient called in to request antibiotics for an upcoming dental procedure) 09/17/2024 Telephone [facility] [address], [address] [place] [address] Stew Phan MD Patient Requested Call (Patient called in to request a prescription for antibotics required for her upcoming dental procedure) from Last 3 Months Family History Medical History Relation Name Comments Alzheimer's Disease Father Leukemia Mother Relation Name Status Comments Father Mother Social History Tobacco Use Types Packs/Day Years Used Date Smoking Tobacco: Never Smokeless Tobacco: Never Tobacco Cessation:Counseling Given: Not Answered Alcohol Use Standard Drinks/Week Comments Never 0 (1 standard drink = 0.6 oz pur e alcohol) AUDIT-C Answer Date Recorded Q1: How often do you have a drink containing alcohol? Monthly or less 05/28/2024 Q2: How many drinks containi ng alcohol do you have on a typical day when you are drinking? Patient does not drink Q3: How often do you have si x or more drinks on one occasion? Never 05/28/2024 PHQ-2 Answer Date Recorded Patient Health Questionnaire-2 Score 0 07/08/2024 Hunger Vital Sign Answer Date Recorded Within the past 12 months, y ou worried that your food would run out before you got the money to buy more. Never true 05/28/20 24 Within the past 12 months, t he food you bought just didn't last and you didn't have money to get more. Never true 05/28/2024 Sex and Gender Information Value Date Recorded Sex Assigned at Not on file Gender Identity Not on file Sexual Orientation Not on file Last Filed Vital Signs Vital Sign Reading Time Taken Comments Blood Pressure 129/49 05/29/2024 10:17 AM CDT Post ambulation. Shaheed on therapy Dinamap Pulse 71 05/29/2024 10:17 AM CDT Temperature 36.7 C (98.1 F) 05/29/2024 8:01 AM CDT Respiratory Rate 17 05/29/2024 8:01 AM CDT Oxygen Saturation 98% 05/29/2024 9:2 7 AM CDT Inhaled Oxygen Concentration - - Weight 78.9 kg (174 lb) 05/28/2024 9:29 AM CDT Height 157.5 cm (5' 2 ) 05/28/2024 9:29 AM CDT Body Mass Index 31.83 05/28/2024 9:29 AM CDT Plan of Treatment Health Maintenance Due Date Last Done Comments BONE DENSITY TESTING 1945 MEDICARE AWV 12 MONTHS 1945 HEPATITIS C SCREENING 03/30/1965 DTAP/TDAP/TD VACCINES (1 - Tdap) 1966 PNEUMOCOCCAL VACCINE 50+ (1 of 1 - PCV) 1997 ZOSTER VACCINE (1 of 2) 1997 Respiratory Syncytial Virus (RSV) Vaccine Pt: or over 60 yrs (1 - 1-dose 75+ series) 2022 COVID-19 VACCINE (1 - 2023-2 5 season) 2024 DEPRESSION SCREENING 08/27/2024 07/08/2024 INFLUENZA VACCINE (Season Ended) 2025 HEPATITIS B VACCINE Aged Out No longe r eligible based on patient's age to complete this topic HIB VACCINE Aged Out No longer eligi ble based on patient's age to complete this topic HPV VACCINE Aged Out No longer eligi ble based on patient's age to complete this topic MENINGOCOCCAL (Group B) VACC INE SHARED DECISION-MAKING Aged Out No longer eligibl e based on patient's age to complete this topic MENINGOCOCCAL GROUPS A/C/Y/W VACCINE Aged Out No longer eligible b ased on patient's age to complete this topic Medical Devices Implanted Type Area Rn Call Center Device Identifier Shelf Expiration Date Model / Serial / Lot Cmnt Bone Djo Srg Cblt 40gm Hvisc Strl Implanted:Qty: 1 on 10/30/2019 by Stew Phan MD at [facility] Right: Knee [employer] 06/25/2020 [id number] / / [id number] Tray Tib 67mm Kn Cocr I Beam Implanted:Qty: 1 on 10/30/2019 by Stew Phan MD at [facility] Right: Knee [employer] 07/04/2029 [id number] / / [id number] Cmpnt Fem Kn Rt Cr Cmnt Prm Vngrd Intlk Implanted:Qty: 1 on 10/30/2019 by Stew Phan MD at [facility] Right: Knee [employer] 07/03/2029 [id number] / / [id number] Cmpnt Ptlr 28mm 1 Pg Wire Ascnt Arcm Kn Implanted:Qty: 1 on 10/30/2019 by Stew Phan MD at [facility] Right: Knee [employer] 09/20/2024 [id number] / / [id number] Brng [id number] Vngrd Arcm Kn Ant Stab Implanted:Qty: 1 on 10/30/2019 by Stew Phan MD at [facility] Right: Knee [employer] 10/02/2024 [id number] / / [id number] Brng [id number] Vngrd Arcm Kn Ant Stab Implanted:Qty: 1 on 05/28/2024 by Stew Phan MD at [facility] Left: Knee [employer] 07/10/2028 [id number] / / [id number] Cmnt Bone Plc R 40gm Grn Implanted:Qty: 1 on 05/28/2024 by Stew Phan MD at [facility] Left: Knee [employer] 08/26/2026 [id number] / / [id number] Tray Tib 71mm Kn Cocr I Beam Implanted:Qty: 1 on 05/28/2024 by Stew Phan MD at [facility] Left: Knee [employer] 12/01/2032 [id number] / / [id number] Cmpnt Ptlr Std 28mm 3 Pg Kn Ser A Implanted:Qty: 1 on 05/28/2024 by Stew Phan MD at [facility] Left: Knee [employer] [id number] / / [id number] Cmpnt Fem Kn Lt Cr Cmnt Prm Vngrd Intlk Implanted:Qty: 1 on 05/28/2024 by Stew Phan MD at [facility] Left: Knee [employer] 03/20/2034 [id number] / / [id number] Advance Directives * Full Code (Latest Code Status on File) Date Activated Date Inactivated Comments 05/28/2024 3:42 PM 05/29/2024 3:28 PM * Full Code Date Activated Date Inactivated Comments 10/30/2019 10:51 AM 11/02/2019 1:53 PM Care Teams Ict Support Engineer Relationship Specialty Start Date End Date Lashae Patel MD [address] [place] [id number] PCP - General Family Medicine 04/10/24 [place] [id number] [address] Orthopedic Surgery 07/22/19
--- OUTSIDE RECORDS SUMMARY | 2024-12-05 08:08 | XMS_ITS | Data Portability ---
Author Organization [facility] Address [address] [place] [address] [place] [address] Care Team Providers Care Model Set Artist Name Role Phone TOMASZ LIRA Primary Care Provider [phone] Assessment No assessment recorded. Plan of Treatment Reminders Order Date Submit Date Provider Last Modified By Organization Details Last Modified Time Details Appointments None recorded. Lab urinalysis , dipstick 2021 022 [email or web address], [address], [address], [place], [address], 14:53:31 Referral None recorded. Procedures None recorded. Surgeries None recorded. Imaging CT, abdomen + pelvis, w/ contrast 2021 022 [facility], [place], [address], 10:04:12 Medication Orders None recorded. Patient TargetsNo targets recorded. Patient InstructionsNo instructions recorded. Reason for Referral None Reported. Results Created Date Observation Date Name Description Value Unit Range Abnormal Flag Note LastModifiedBy Organization Detail LastModifiedTime 10/05/1910/05/2021 URINA LYSIS , WITH MICRO SCOPI C color, urine Yellow colorl ess, light yellow , yellow , dark yellow , straw, damari Not Available [facility] (Lab) [address], [place], [address], 10/09/2021 09:19:00 10/05/19 22 10/05/2021 URINA LYSIS , WITH MICRO SCOPI C clarity, urine Clear Not Available [facility] (Lab) [address], [place], [address], 10/09/2021 09:19:00 10/05/19 22 10/05/2021 URINA LYSIS , WITH MICRO SCOPI C glucose, urine Negati ve mg/dL negati ve Not Available [facility] (Lab) [address], [place], [address], 10/09/2021 09:19:00 10/05/19 22 10/05/2021 URINA LYSIS , WITH MICRO SCOPI C bilirubin, urine Negati ve mg/dL negati ve Not Available [facility] (Lab) [address], [place], [address], 10/09/2021 09:19:00 10/05/19 22 10/05/2021 URINA LYSIS , WITH MICRO SCOPI C ketones, urine Negati ve mg/dL negati ve Not Available [facility] (Lab) [address], [place], [address], 10/09/2021 09:19:00 10/05/19 22 10/05/2021 URINA LYSIS , WITH MICRO SCOPI C pH, urine 6.0 . 5.0-9. 0 Not Available [facility] (Lab) [address] [place], [address], 10/09/2021 09:19:00 10/05/19 22 10/05/2021 URINA LYSIS , WITH MICRO SCOPI C specific gravity, urine 1.018 . 1.001- 1.035 Not Available [facility] (Lab) [address] [place], [address], 10/09/2021 09:19:00 10/05/19 22 10/05/2021 URINA LYSIS , WITH MICRO SCOPI C blood, urine Negati ve negati ve Ascor bic Acid is prese nt in the urine which is known to cause false negat sabine resul ts for blood . Not Available [facility] (Lab) [address] [place], [address], 10/09/2021 09:19:00 10/05/19 22 10/05/2021 URINA LYSIS , WITH MICRO SCOPI C protein, UA Negati ve mg/dL negati ve Not Available [facility] (Lab) [address], [place], [address], 10/09/2021 09:19:00 10/05/19 22 10/05/2021 URINA LYSIS , WITH MICRO SCOPI C urobilinogen , urine <2.0 mg/dL <2.0 Not Available [facility] (Lab) [address], [place], [address], 10/09/2021 09:19:00 10/05/19 22 10/05/2021 URINA LYSIS , WITH MICRO SCOPI C nitrite, urine Negati ve negati ve Not Available [facility] (Lab) [address], [place], [address], 10/09/2021 09:19:00 10/05/19 22 10/05/2021 URINA LYSIS , WITH MICRO SCOPI C leukocyte esterase, urine Negati ve marilu/u L negati ve Not Available [facility] (Lab) [address], [place], [address], 10/09/2021 09:19:00 10/05/19 22 10/05/2021 URINA LYSIS , WITH MICRO SCOPI C WBC, urine 0-5 /hpf none, 0-5 Not Available [facility] (Lab) [address], [place], [address], 10/09/2021 09:19:00 10/05/19 22 10/05/2021 URINA LYSIS , WITH MICRO SCOPI C RBC, urine 0-2 /hpf none, 0-2 Not Available [facility] (Lab) [address], [place], [address], 10/09/2021 09:19:00 10/05/19 22 10/05/2021 URINA LYSIS , WITH MICRO SCOPI C bacteria, urine None /hpf none Not Available [facility] (Lab) [address], [place], [address], 10/09/2021 09:19:00 10/05/19 22 10/05/2021 URINA LYSIS , WITH MICRO SCOPI C squamous epithelial cells, urine Trace /hpf none abnormal Not Available [facility] (Lab) [address], [place], [address], 10/09/2021 09:19:00 10/05/19 22 10/05/2021 URINA LYSIS , WITH MICRO SCOPI C mucus, urine Few /hpf none, trace, few Not Available [facility] (Lab) [address], [place], [address], 10/09/2021 09:19:00 10/05/19 22 10/05/2021 CULTU RE: URINE result report SEE RESULT S BELOW Test: Cultu re: Urine Speci men Sourc e: Urine Voide d Speci men Type: Urine Speci men Date: 022 5:31 PM Resul t Date: 2021 8:16 AM Resul t Statu s: Final resul t Abnor mal: No Resul ting Lab: [facility] [address] [facility] [address] Tel: CULTU RE ----- ----- ----- --- No growt h in 1 day (dete ction level of 10,00 0 colon ies / ml.) Not Available [facility] (Lab) [address], [place], [address], 10/09/2021 09:19:01 10/05/19 22 10/05/2021 urina lysis , dipst ick Leukocytes trace Not Available [facility] [address], [place], [address], 10/05/2021 14:39:12 10/05/19 22 10/05/2021 urina lysis , dipst ick Nitrite neg Not Available [facility] [address], [place], [address], 10/05/2021 14:39:12 10/05/19 22 10/05/2021 urina lysis , dipst ick Urobilinogen neg Not Available [facility] tiago [address], [place], [address], 10/05/2021 14:39:12 10/05/19 22 10/05/2021 urina lysis , dipst ick Protein trace Not Available [facility] [address], [place], [address], 10/05/2021 14:39:12 10/05/19 22 10/05/2021 urina lysis , dipst ick pH 5 Not Available [facility] [address], [place], [address], 10/05/2021 14:39:12 10/05/19 22 10/05/2021 urina lysis , dipst ick Blood trace Not Available [facility] [address], [place], [address], 10/05/2021 14:39:12 10/05/19 22 10/05/2021 urina lysis , dipst ick Specific Paxton 1.010 Not Available [facility] zandra [address], [place], [address], 10/05/2021 14:39:12 10/05/19 22 10/05/2021 urina lysis , dipst ick Ketone neg Not Available [facility] [address], [place], [address], 10/05/2021 14:39:12 10/05/19 22 10/05/2021 urina lysis , dipst ick Bilirubin neg Not Available [facility] [address], [place], [address], 10/05/2021 14:39:12 10/05/19 22 10/05/2021 urina lysis , dipst ick Glucose neg Not Available [facility] [address], [place], [address], 10/05/2021 14:39:12 10/05/19 22 10/05/2021 urina lysis , dipst ick Appearance clear Not Available [facility] guera [address], [place], [address], 10/05/2021 14:39:12 10/05/19 22 10/05/2021 urina lysis , dipst ick Color yellow Not Available [facility] [address], [place], [address], 10/05/2021 14:39:12 10/21/[address], abdom en + pelvi s, w/ contr ast No observ ation record ed. [facility] [address], [place], [address], 10/26/2021 18:46:52 Result Notes None recorded. Problems Name Problem SNOMED Code Status Onset Date Resolution Date Notes Provider Name and Address Organization Details Recorded Time Vaginiti s and vulvovag initis Completed 201210/04/2021 Vaginiti s and vulvovag initis, unspecif ied;Prac radha ID: 0001 [facility] 17:41:23 Menopaus al symptom 35055008 Completed 201310/04/2021 Menopaus al or female climacte bernie states;P shakira ID: 0001 Nisa hollingsworth [facility] 17:40:51 Adult health examinat ion Completed 201410/04/2021 Routine general medical examinat ion at a [facility] facility ;Practic e ID: 0001 [facility] 17:40:45 Speciali zed medical examinat ion Completed 201410/04/2021 Routine gynecolo gical examinat ion;Prac radha ID: 0001 Nisa Fabian [facility] 2 17:41:16 Screenin g for malignan t neoplasm of cervix Completed 201410/04/2021 Pap Smear;Pr actice ID: 0001 Nisa Fabian [facility] 2 17:40:54 Neoplasm of uncertai n behavior of female genital organ [id number] Completed 201210/04/2021 Lesion Uncertai n Genital; Practice ID: 0001 [facility] 17:40:53 Urinary tract infectio us disease [id number] Completed 201210/04/2021 Urinary tract infectio n, site not specifie d;Practi ce ID: 0001 Nisa Fabian [facility] 2 17:41:20 Leukocyt osis [id number] Completed 201210/04/2021 LEUKOCYT OSIS NOS;Prac radha ID: 0001 [facility] 17:40:49 Screenin g for malignan t neoplasm of rectum Completed 201210/04/2021 Screenin g for malignan t neoplasm s of the rectum;P ractice ID: 0001 Nisa Fabian [facility] 2 17:41:10 Overweig ht [id number] Completed 201010/22/2012 Overweig ht;Recor ded Elsewher e: No Locat ion: [facility] S ource: EHR Quality Assurance Director arelis: N Practi ce ID: 0001 Rocco lable Time: 10:30:00 AM Not Available [facility] 0 21:12:48 Blood leukocyt e number above referenc e range [id number] Completed 201610/04/2021 Elevated white blood cell count, unspecif ied;Calvin rded Elsewher e: No Locat ion: [facility] S ource: EHR Quality Assurance Director arelis: N Ramseyti ce ID: 0001 Rocco lable Time: 11:15:00 AM Nisa [facility] 2 17:40:48 Screenin g for malignan t neoplasm of cervix Completed 201210/22/2012 Screenin g for malignan t neoplasm s of the cervix;R ecorded Elsewher e: No Locat ion: [facility] S ource: EHR Quality Assurance Director arelis: N Ramseyti ce ID: 0001 Rocco lable Time: 11:00:00 AM Nisa [facility] [address] 17:40:[address] Concept Completed 201510/04/2021 Well woman check w/o abnormal finding; Recorded Elsewher e: No Locat ion: [facility] S ource: EHR Quality Assurance Director arelis: N Ramseyti ce ID: 0001 Rocco lable Time: 10:00:00 AM Nisa Fabian [facility] 2 17:41:14 Female genital organ symptoms [id number] Completed 201010/22/2012 Unspecif ied symptom associat ed with female genital organs;R ecorded Elsewher e: No Locat ion: [facility] S ource: EHR Quality Assurance Director arelis: N Ramseyti ce ID: 0001 Rocco lable Time: 10:30:00 AM Not Available [facility] 0 21:12:48 Abdomina l pain [id number] Completed 201710/04/2021 Abdomina l pain;Rec orded Elsewher e: No Locat ion: [facility] S ource: EHR Quality Assurance Director arelis: N Ramseyti ce ID: 0001 Rocco lable Time: 11:30:00 AM Nisa Fabian [facility] 2 17:40:43 Speciali zed medical examinat ion Completed 201210/22/2012 Gynecolo gical Examinat ion;Calvin rded Elsewher e: No Locat ion: [facility] S ource: EHR Quality Assurance Director arelis: N Practi ce ID: 0001 Rocco lable Time: 11:00:00 AM Nisa Fabian [facility] [address] 17:41:[address] Concept Completed 201710/04/2021 Encntr for general adult medical exam w/o abnormal findings ;Recorde d Elsewher e: No Locat ion: [facility] S ource: EHR Quality Assurance Director arelis: N Practi ce ID: 0001 Rocco lable Time: 11:30:00 AM Nisa Fabian [facility] 2 17:41:12 Adult health examinat ion Completed 201210/22/2012 Routine Medical Exam;Rec orded Elsewher e: No Locat ion: [facility] S ource: EHR Quality Assurance Director arelis: N Practi ce ID: 0001 Rocco lable Time: 10:45:00 AM Nisa Fabian [facility] 2 17:40:45 Vaginal vault smear result - finding [id number] Completed 201710/04/2021 Unsatisf actory cytologi c smear of vagina;R ecorded Elsewher e: No Locat ion: [facility] S ource: EHR Quality Assurance Director arelis: N Practi ce ID: 0001 Rocco lable Time: 10:30:00 AM Nisa Fabian [facility] 2 17:41:21 Cervicov aginal cytology specimen unsatisf actory [id number] Completed 201710/04/2021 Unsatisf actory cytologi c smear of cervix;P ractice ID: 0001 Nisa Fabian [facility] 2 17:40:46 Problem Notes None recorded. Procedures Surgical History Date Name Laterality Status Provider Name and Address Organization Details Recorded Time 1 Most Recent Bone Density completed [facility] 10/05/2021 14:38:01 8 Date of Last Mammogram completed [facility] 10/05/2021 14:37:16 7 Date of Last Colonoscopy completed [facility] 10/05/2021 14:37:49 3 biopsy of vulva completed [facility] 10/05/2021 14:05:17 Imaging Results Imaging Date Name Status LastModified by Organiz ation Details LastModified Time 10/21/2021 CT, abdomen + pelvis, w/ contrast completed [facility] [address] [place], [place] [address] [address] [place] [address], [address], 10/26/2021 18:46:52 Procedure Notes None recorded. Medical Equipment None Reported. Allergies Allergen ID Allergen Name Allergen Category Reaction Reaction Severity Criticality Documentation Date Start Date Code Code System Note Provider Name and Address Organization Details Recorded Time 98610 sulfameth oxazole medicatio n Not available Not available Not available 08/13/2020 27144 RxNorm Comme nt: [facility]at [facility] [place] [place] [facility]; Not Available [facility] 0 14:14:55 41413 trimethop rim medicatio n Not available Not available Not available 08/13/2020 05864 RxNorm Comme nt: [facility]; Not Available [facility] 0 14:14:55 Medications Name Sig Start Date Stop Date Status Note LastModified by Organization Details LastModified Time amoxicill in 500 mg capsule 10/05 completed Not Available Not Available Not Available biotin 5 mg capsule 04/26 completed Prescrib ed Elsewher e: Yes Loca tion: [facility] M odify By: lsloan E ncounter DateTime : 09/24/19 13 11:00:00 AM Not Available Not Available Not Available alendrona te 70 mg tablet TAKE 1 TABLET ONCE A WEEK BEFORE BREAKFAS T DIRECTED active Not Available Not Available No t Available clobetaso l 0.05 % topical cream apply by topical route 2 times every day a thin layer to the affected area(s) 04/26 completed Prescrib ed Elsewher e: No Locat ion: [facility] odify By: farida dominiqueunter DateTime : 10/22/19 13 10:45:00 AM Not Available Not Available Not Available amoxicill in 500 mg tablet take 1 tablet by oral route 3 times every day 04/30 completed Prescrib ed Elsewher e: No Locat ion: [facility] odify By: chacha dominiqueuntbay DateTime : 12/22/19 17 04:43:16 PM Not Available Not Available Not Available Macrobid 100 mg capsule take 1 capsule (100MG) by oral route every 12 hours with food 11/19 completed Prescrib ed Elsewher e: No Locat ion: [facility] odify By: sandro wade DateTime : 09/30/19 13 11:04:25 AM Not Available Not Available Not Available amitripty line 25 mg tablet take 1 tablet by oral route every day at bedtime 04/30 completed Prescrib ed Elsewher e: No Locat ion: [facility] odify By: chacha dominiqueuntbay DateTime : 04/26/20 15 01:00:00 PM Not Available Not Available Not Available Cipro 500 mg tablet take 1 tablet by oral route every 12 hours 12/21 completed Prescrib ed Elsewher e: No Locat ion: [facility] odify By: edith dominiqueuntbay DateTime : 12/20/19 17 11:15:00 AM Not Available Not Available Not Available magnesium 100 mg capsule 03/23 completed Prescrib ed Elsewher e: Yes Loca tion: [place] [facility] odify By: sandro wade DateTime : 10/22/19 13 10:45:00 AM Not Available Not Available Not Available Advil 200 mg tablet take 1 tablet by oral route every 6 hours as needed with food 05/27 completed Prescrib ed Elsewher e: Yes Loca tion: [facility] odify By: rebeca Mejia r DateTime : 05/23/20 11 10:30:00 AM Not Available Not Available Not Available Tylenol 325 mg tablet take 1 tablet by oral route every 4 hours as needed 05/27 completed Prescrib ed Elsewher e: Yes Loca tion: [facility] odify By: rebeca Mejia r DateTime : 05/23/20 11 10:30:00 AM Not Available Not Available Not Available gabapenti n 100 mg capsule take 2 capsules by oral route 2 times every day 10/05 completed Prescrib ed Elsewher e: No Locat ion: [facility] odify By: yusuf wade DateTime : 07/03/20 19 10:52:21 AM Not Available Not Available Not Available Vitamin D2 1,250 mcg (50,000 unit) capsule take 1 capsule (10616LQ ITS) by oral route every week 11/19 completed Prescrib ed Elsewher e: No Locat ion: [facility] odify By: sandro wade DateTime : 06/13/20 11 03:00:22 PM Not Available Not Available Not Available magnesium 30 mg tablet active Prescrib ed Elsewher e: Yes Loca tion: [facility] odify By: chacha dominiqueuntbay DateTime : 04/30/20 18 09:30:00 AM Not Available Not Available Not Available metronida zole 0.75 % topical gel 10/05 completed Not Available Not Available Not Available doxycycli ne hyclate 100 mg tablet 10/05 completed Not Available Not Available Not Available [place] Headache Powder 650 mg oral packet active Prescrib ed Elsewher e: Yes Loca tion: [facility] odify By: edith calderon DateTime : 05/23/20 11 10:30:00 AM Not Available Not Available Not Available Stool Softener 50 mg capsule take 1 capsule by oral route every day at bedtime as needed active Prescrib ed Elsewher e: Yes Loca tion: [facility] odify By: farida calderon DateTime : 04/26/20 15 01:00:00 PM Not Available Not Available Not Available Vitamin C 500 mg capsule,e xtended release 03/23 completed Prescrib ed Elsewher e: Yes Loca tion: [facility] odify By: sandro wade DateTime : 09/24/19 13 11:00:00 AM Not Available Not Available Not Available Premarin 0.625 mg/gram vaginal cream insert 1 Gram by vaginal route every day for 1 to 2 week then reduce to 0.5g twice weekly maintena nce 05/20 completed Prescrib ed Elsewher e: No Locat ion: [facility] odify By: lloyddical Encount er DateTime : 05/07/20 13 01:56:39 PM Not Available Not Available Not Available melatonin 1 mg/4 mL oral drops 04/26 completed Prescrib ed Elsewher e: Yes Loca tion: [facility] odify By: farida calderon DateTime : 10/22/19 13 10:45:00 AM Not Available Not Available Not Available Calcio Leslee 500 mg tablet 03/23 completed Prescrib ed Elsewher e: Yes Loca tion: [facility] odify By: sandro wade DateTime : 10/22/19 13 10:45:00 AM Not Available Not Available Not Available [place]-3 active Prescrib ed Elsewher e: Yes Loca tion: [facility] odify By: chacha calderon DateTime : 04/30/20 18 09:30:00 AM Not Available Not Available Not Available Vitamin D3 10 mcg (400 unit) capsule 05/27 completed Prescrib ed Elsewher e: Yes Loca tion: [facility] odify By: rebeca gudino DateTime : 04/26/20 15 01:00:00 PM Not Available Not Available Not Available B-12 Plus 5,000 mcg-100 mcg sublingua l tablet active Prescrib ed Elsewher e: Yes Loca tion: [facility] odify By: sandro wade DateTime : 09/24/19 13 11:00:00 AM Not Available Not Available Not Available acai culver extract 500 mg capsule 03/23 completed Prescrib ed Elsewher e: Yes Loca tion: [facility] odify By: sandro wade DateTime : 09/24/19 13 11:00:00 AM Not Available Not Available Not Available Probiotic 10 billion cell capsule active Prescrib ed Elsewher e: Yes Loca tion: [facility] odify By: chacha calderon DateTime : 04/30/20 18 09:30:00 AM Not Available Not Available Not Available biotin 1 mg capsule active Prescrib ed Elsewher e: Yes Loca tion: [facility] odify By: chacha calderon DateTime : 04/30/20 18 09:30:00 AM Not Available Not Available Not Available ginkgo biloba leaf extract 60 mg tablet active Prescrib ed Elsewher e: Yes Loca tion: [facility] odify By: farida calderon DateTime : 04/26/20 15 01:00:00 PM Not Available Not Available Not Available Vitals Date Recorded Body height Body mass index (BMI) Body weight Provider Name and Address Organization Details Last Updated DateTime 10/05/2021 160.02 cm 31.2 kg/m2 23857.26 g Nisa Fabian [facility] 10/05/2021 14:33:50 Date Recorded Systolic blood pressure Diastolic blood pressure Provider Name and Address Organization Details Last Updated DateTime 10/05/2021 132 mm[Hg] 78 mm[Hg] Shani Oneill [facility]- [address], [place], [address], [facility] 10/05/2021 14:53:25 Social History Question Answer Notes LastModified by Organizat ion Details LastModified Time Tobacco Smoking Status Never Smoker [facility] 10/04/2021 17:42:31 What Is Your Level Of Alcohol Consumption? None Information not available 10/04/2021 Are You Blind Or Do You Have Difficulty Seeing? No Information not available 10/04/2021 What Is Your Level Of Caffeine Consumption? Occasional Information not available 10/04/2021 Are You Deaf Or Do You Have Serious Difficulty Hearing? No Information not available 10/04/2021 What Type Of Diet Are You Following? REGULAR Information not available 10/04/2021 Do You Use Your Seat Belt Or Car Seat Routinely? Yes Information not available 10/04/2021 Do You Have Smoke And Carbon Monoxide Detectors In Your Home? Yes Information not available 10/04/2021 Do You Feel Stressed (tense, Restless, Nervous, Or Anxious, Or Unable To Sleep At Night)? [id number] Information not available 10/04/2021 Do You Use Sunscreen Routinely? Yes Information not available 10/04/2021 Sex: Unknown Functional Status Question Answer Note LastModified by Organizat ion Details LastModified Time Do you have difficulty walking or climbing stairs? No Information not available 10/04/2021 Are you able to walk? YESWOREST Information not available 10/04/2021 Are you able to care for yourself? Yes Information not available 10/04/2021 Do you have difficulty dressing or bathing? No Information not available 10/04/2021 What is your exercise level? Occasional Information not available 10/04/2021 Mental Status None recorded. Family History Relationship Description Onset Age of this Age Resolved Age Notes LastModified by Organization Details LastModified Time Father Asthma Not available 03/2022 17:41:39 Maternal Grandmother Alzheimer's disease Not available 2021 17:41:50 Mother Leukemia Not available 0 10/04/2021 17:41:58 Medical History Condition Response Asthma Y Gynecological History Statement/Question Response Abnormal Pap N Date of Last Colonoscopy 08/27/2016 Date of Last Mammogram 04/30/2018 Most Recent Bone Density 08/27/2020 Sexually Active? Y STIs/STDs N Date of Last Pap Smear Sexual Problems? N Current Control Method Menopause Obstetrics History GPAL:G 2 P 0 0 0 2 Type Value Living 2 Total 2 Past Encounters Encounter ID Performer Location Encounter Start Date Encounter Closed Date Diagnosis/Indication Diagnosis SNOMED-CT Code Diagnosis ICD10 Code Diagnosis Note [id number] [facility] [address] [address] 10/05/2021 14:00:41 10/05/2021 15:10:51 Urinary symptoms [id number] R39.9 Will send urine for cx but neg urinary sx's Abdominal distension symptom 356101007 R14.0 Today we agreed to update a Abdominal/ Pelvic CT scan for her continuous complaints of abd bloating, gas, distention that has progressiv umberto gotten worse over the past few weeks despite dietary other changes. Likely these issues are GI related vs KEYSMITH related due to her Hx of full hysterecto my for repeated abn pap results per pt in her 40's. She has had neg pap/hpv screenings since that time.She was concerned about a recent passing of a friend who was diagnosed with ovarian cancer & her only sx was abd bloating/d istention per pt. We discussed that her risks are extremely low b/c of her full hysterecto my for this to be a guide delegate related issue but will include CT do pelvic scan as well.Her pelvic exam today was wnl. She will also call her PCP to move up her appt as likely will need additional evaluation /managemen t of this issue moving forward. Patient is to contact office or go to nearest ED/Urgent care if fever >/= 100.1, pain, excessive bleeding, unusual drainage or swelling in area of concern; or experienci ng worsening sx's or new onset of concerning sx's. Understand ing verbalized . All questions answered to patient satisfacti on. Time spent in visit is a total of 15 mins with at least 50% of visit consisting of counseling and review of plan of care.Addit ional precaution abelino measures were taken to minimize potential exposure to the Covid-19 virus during this patient s visit, including available hand campus recruiting internship upon arrive, temperatur e check and being asked a series of screening questions. All staff wore face coverings during this encounter, as well as provided additional cleaning and sanitizing of all surfaces, including countertop s, pens, chairs, door handles, light switches, etc, prior to and following the patient s visit. Health Concerns Section Related Observation LastModified by Organization Detai ls LastModified Time None Recorded Concern Status LastModified by Organization Details LastModified Time None Recorded Advance Directives Directive None Recorded Payers Encounter Date Sequence Insurance Name Policy Number Policy Gomes Covered Member ID Gomes Member ID Guarantor Name 10/05/2021 1 [place] Cathy Anderson [id number] Cathy Anderson 10/05/2021 2 [place]: [employer] [facility] [employer] [address] [id number] Cathy Anderson Notes Date Note Type Note Provider Name and Address Organization Details Recorded Time 10/05/2021 text/html Abdominal PainReported bypatient.Location: generalized; Signficant notable distention, bloating, flatus, belching. Quality:bloating;fu llness Severity:no pain Duration:constant (3yrs but feels it has progressively gotten more notable over the last 3mos.) Onset/Timing:worse Aggravating Factors:eating (Popcorn & inactivity.) Alleviating Factors:moving bowels (Does have some constipation but has daily BM's, takes colace, fiber, hydrates daily. Does not feel having a BM relieves her current sx's necessarily.); belching (Does not relieve this issue but does feel her belching & flatus has significantly increased.) Associated Symptoms:no fever; no chills; no blood in the urine; no heartburn; no shortness of breath; no nausea; no vomiting; no diarrhea; no constipation; normal stool; no blood in stool;decreased appetite Other:Full hysterectomy for repeated abn pap/hpv testing during her 40's. Pain Radiation:no radiation Previous Tests, Treatment and/or Diagnostic Procedures:OTC medications (see medication list. No new supplements recently started.); prescription medication (See list. No new medications started.) Shani Oneill, [facility]- [address], [place], [address], [facility] 10/05/2021 15:10:40 OBGyn Episode Ob Episode Information Episode Created Date Number of Fetuses Patient Bloodtype Patient rh Status Prepregnancy Weight lbs Domestic Partner Domestic Partner Phone Father Name Solar Thermal Installer Status 10/05/19 22 1 CLOSED Fetus Data First Name Last Name Admitted to NICU Weight (g) Sex Living Outcome Pediatric Complications Fetus ID Race Codes Race Delivery Type M [id number] Vaginal Delivery Asim Calculation Initial Asim Date Initial Exam Date Initial Exam Provider Initial Ultrasound Date Last Menstrual Period Date Ultra Sound Weeks Gestation 0 Eighteen To Twenty Week Asim Update Ultra Sound Date Fundal Height At Umbil Quickening Date Ultra Sound Latest Weeks Gestation Final Asim Confirmed By Final Asim Confirmed Date Final Asim Date Ultra Sound Latest Days Gestation 0 0 Menstrual History Last Menstrual Date Menses Monthly On Bcp Conception Prior Menses Frequency Hcg Plus Date Menarche Onset Age Delivery Information Delivery Date Delivery Type Labor Anesthesia Weeks Gestation Incision Type Labor Labor Length Hrs Delivered By Post Complications Tubal Sterilization Discharge Date Comments Discharge Information Feeding Method Contraceptive Method Maternal HG B and HCT Levels Ob Episode Information Episode Created Date Number of Fetuses Patient Bloodtype Patient rh Status Prepregnancy Weight lbs Domestic Partner Domestic Partner Phone Father Name Solar Thermal Installer Status 10/05/19 22 1 CLOSED Fetus Data First Name Last Name Admitted to NICU Weight (g) Sex Living Outcome Pediatric Complications Fetus ID Race Codes Race Delivery Type M [id number] Vaginal Delivery Asim Calculation Initial Asim Date Initial Exam Date Initial Exam Provider Initial Ultrasound Date Last Menstrual Period Date Ultra Sound Weeks Gestation 0 Eighteen To Twenty Week Asim Update Ultra Sound Date Fundal Height At Umbil Quickening Date Ultra Sound Latest Weeks Gestation Final Asim Confirmed By Final Asim Confirmed Date Final Asim Date Ultra Sound Latest Days Gestation 0 0 Menstrual History Last Menstrual Date Menses Monthly On Bcp Conception Prior Menses Frequency Hcg Plus Date Menarche Onset Age Delivery Information Delivery Date Delivery Type Labor Anesthesia Weeks Gestation Incision Type Labor Labor Length Hrs Delivered By Post Complications Tubal Sterilization Discharge Date Comments Discharge Information Feeding Method Contraceptive Method Maternal HG B and HCT Levels
--- OUTSIDE RECORDS SUMMARY | 2024-12-05 08:08 | XMS_ITS | Clinical Summary ---
Author Organization [facility] Heather fuentes Noemi Address [address] [place] [address] Care Team Providers Care Field Marketing Director Name Role Phone Lashae Patel MD Primary Care Provider [phone] Allergies Active Allergy Reactions Criticality Noted Date Comments Sulfamethoxazole Nausea and Vomiting Low 05/21/2011 Medications vitamin E acid succinate (vitamin E succinate) 268 mg (400 unit) Tablet Take by mouth daily. Active cholecalciferol, Vitamin D3, 50 mcg (2,000 unit) Tablet Take 2,000 Units by mouth daily. Active docusate sodium (COLACE) 100 mg capsule Take 100 mg by mouth 1 time daily as needed. Active biotin 5 mg Capsule Take by mouth. Active Magnesium 250 mg Tablet every 24 hours. Active CALCIUM CARBONATE ORAL Take by mouth. Active Active Problems No known active problems Encounters Date Type Department Care Team Description 10/15/2024 External Device Data [facility] ABSTRACTION Provider, Abstract 09/23/2024 External Device Data [facility] ABSTRACTION Provider, Abstract 09/17/2024 External Device Data [facility] ABSTRACTION Provider, Abstract 09/17/2024 External Device Data [facility] ABSTRACTION Provider, Abstract from Last 3 Months Family History Medical History Relation Name Comments No Known Problems Father Heart Disease Mother Heart Disease Son Relation Name Status Comments Father Mother Son Alive Social History Tobacco Use Types Packs/Day Years Used Date Smoking Tobacco: Never Smokeless Tobacco: Never Tobacco Cessation:Counseling Given: Not Answered Alcohol Use Standard Drinks/Week Comments Never 0 (1 standard drink = 0.6 oz pur e alcohol) Comments Unknown Sex and Gender Information Value Date Recorded Sex Assigned at Not on file Legal Sex Female 11:12 AM CDT Gender Identity Not on file Sexual Orientation Not on file Last Filed Vital Signs Vital Sign Reading Time Taken Comments Blood Pressure 140/67 05/14/2024 10:42 AM CDT Pulse 68 05/14/2024 10:42 AM CDT Temperature 36.3 C (97.3 F) 05/14/2024 10:42 AM CDT Respiratory Rate 16 05/14/2024 10:42 AM CDT Oxygen Saturation 97% 05/14/2024 10:42 AM CDT Inhaled Oxygen Concentration - - Weight 78.5 kg (173 lb) 05/14/2024 10:42 AM CDT Height 157.5 cm (5' 2 ) 04/23/2024 10:19 AM CDT Body Mass Index 31.64 04/23/2024 10:19 AM CDT Plan of Treatment Health Maintenance Due Date Last Done Comments DTAP/TDAP/TD VACCINES (1 - Tdap) 1966 Traditional Medicare (ACO) A nnual Wellness Visit 1964 PNEUMOCOCCAL VACCINE 50+ YEA RS (1 of 1 - PCV) 1997 ZOSTER VACCINE (1 of 2) 1997 RSV VACCINE (60+ or ) (1 - 1-dose 75+ series) 2022 INFLUENZA VACCINE (#1) 2024 OSTEOPOROSIS SCREENING Completed 05/16/2024, 2020 Insurance MEDICARE PART A AND B [facility] Care Teams Field Marketing Director Relationship Specialty Start Date End Date Lashae Patel MD [address] [place] [address] Dr Mg [address] [place] [phone] PCP - General Family Practice 05/14/24
== END 2024-12-05 08:04 | disposition home or self-care (01) ==
PROVIDERS: PCP Family Medicine; Visit Provider Family Medicine
DX: Z12.31 Encounter for screening mammogram for malignant neoplasm of breast (principal)
CPT/HCPCS: 77063; 77067

== ENCOUNTER 2024-12-25 15:09 | Outpatient (CLI) | payer MEDICARE, BC, SELFPAY ==
--- OUTSIDE RECORDS SUMMARY | 2024-12-25 15:36 | XMS_ITS | Clinical Summary ---
Author Organization [facility] Address [address] [address] Care Team Providers Care Baggage Handler Name Role Phone Stew Phan MD Unavailable [phone] Lashae Patel MD Primary Care Provider [phone] Source Comments [facility],non-owned Affiliates and Associated Physician Practices is amultiple site organization consisting of ambulatory clinics and hospital sitesin [place], [place], [place] and [place]. This disclosure is being madepursuant to the Care Everywhere program and may not contain all information available regarding this patient. Last updated 18.[facility] Allergies Active Allergy Reactions Criticality Noted Date Comments Levofloxacin Rash Medium 07/22/2019 Sulfamethoxazole Unknown 05/21/2011 Trimethoprim Unknown 05/21/2011 Medications * Be aware that medications may not be up to date on this document. Alwaysverify current medications with the patient. magnesium 250 MG tablet every 24 hours Activ e Vitamin D3, cholecalciferol , 50 MCG (1999 UT) tablet Take 1 (one) tablet by mouth once daily Active docusate sodium (COLACE) 100 MG capsule Take 1 (one) capsule by mouth once daily as needed for Constipation Active Ginkgo Biloba (GINKOBA PO) Take 120 mg by mouth Active [place]-3 Krill Oil 500 MG Active Biotin 5000 MCG Acti ve vitamin E (TOCOPHERYL) 400 UNIT tablet Take by mouth once daily Active Other Alteril (sleep aid) Active lactobacillus extra strength (Florajen) capsule Take 1 (one) capsule by mouth once daily Probiotic Active Multiple Vitamins-Minera ls (HAIR SKIN AND NAILS FORMULA PO) Active cyanocobalamin (Vitamin B-12) 1000 MCG tablet Take 1 (one) tablet by mouth once daily Active Apoaequorin (PREVAGEN PO) Active acetaminophen (Tylenol) 500 MG capsule Take 2 (two) capsules by mouth 3 times daily Take 3x/day for 10 days, then as needed for pain 4 Active omeprazole (PriLOSEC) 20 MG capsule Take 1 (one) capsule by mouth once daily for 42 days 42 capsule 05/29/2024 2:29 PM CDT 4 Active aspirin EC (Ecotrin) 81 MG tablet Take 1 (one) tablet by mouth once daily Resume once 3 weeks of eliquis is complete 4 Active apixaban (Eliquis) 2.5 MG tablet Take 1 (one) tablet by mouth 2 times daily for 21 days 42 tablet 05/29/2024 2:29 PM CDT 4 Active oxyCODONE, immediate release, (Roxicodone) 5 MG tabletIndicatio ns:Post-operati ve pain Take 1 (one) to 2 (two) tablets by mouth every 4 hours as needed for pain 42 tablet 4 Active celecoxib (CeleBREX) 200 MG capsule Take 1 (one) capsule by mouth 2 times daily 180 capsule 2 4 Active Active Problems Problem Noted Date Diagnosed Date Status post total left knee replacement 05/28/20 24 Primary osteoarthritis of left knee 02/02/2023 History of total right knee replacement 01/15/20 20 Arthritis of knee 10/30/2019 Gastroesophageal reflux disease 07/29/2019 Lesion of ulnar nerve 07/29/2019 Essential hypertension 07/16/2017 Encounters Date Type Department Care Team Description 11/19/2024 Telephone [facility] [address] [facility], [address] [address] Stew Phan MD Patient Requested Call (patient called in to request antibiotics for an upcoming dental procedure) from Last 3 Months [...] money to get more. Never true 05/28/2024 Comments No Sex and Gender Information Value Date Recorded Sex Assigned at Not on file Legal Sex Female 2:31 PM CDT Gender Identity Not on file Sexual [...] - 1-dose 75+ series) 2022 COVID-19 VACCINE (2023-2 5 season) 2024 DEPRESSION SCREENING 08/27/2024 07/08/2024 [...] this topic Medical Devices Implanted Type Area Robotics Testing Technician Device Identifier Shelf Expiration Date Model / Serial / Lot Cmnt Bone Djo Srg Cblt 40gm Hvisc Strl Implanted:Qty: 1 on 10/30/2019 by Stew Phan MD at [facility] Right: Knee [employer] 06/25/2020 [id number] / / [id number] Tray Tib 67mm Kn Cocr I Beam Implanted:Qty: 1 on 10/30/2019 by Stew Phan MD at [facility] Right: Knee [employer] 07/04/2029 [id number] / / [id number] Cmpnt Fem Kn Rt Cr Cmnt Prm Vngrd Intlk Implanted:Qty: 1 on 10/30/2019 by Stew Phan MD at [facility] Right: Knee [employer] 07/03/2029 [id number] / / [id number] Cmpnt Ptlr 28mm 1 Pg Wire Ascnt Arcm Kn Implanted:Qty: 1 on 10/30/2019 by Stew Phan MD at [facility] Right: Knee [employer] 09/20/2024 [id number] / / [id number] Brng [id number] Vngrd Arcm Kn Ant Stab Implanted:Qty: 1 on 10/30/2019 by Stew Phan MD at [facility] Right: Knee [employer] 10/02/2024 [id number] / / [id number] Brng [id number] Vngrd Arcm Kn Ant Stab Implanted:Qty: 1 on 05/28/2024 by Stew Phan MD at [facility] Left: Knee [employer] 07/10/2028 [id number] / / [id number] Cmnt Bone Plc R 40gm Grn Implanted:Qty: 1 on 05/28/2024 by Stew Phan MD at [facility] Left: Knee [employer] 08/26/2026 [id number] / / [id number] Tray Tib 71mm Kn Cocr I Beam Implanted:Qty: 1 on 05/28/2024 by Stew Phan MD at [facility] Left: Knee [employer] 12/01/2032 [id number] / / [id number] Cmpnt Ptlr Std 28mm 3 Pg Kn Ser A Implanted:Qty: 1 on 05/28/2024 by Stew Phan MD at [facility] Left: Knee [employer] [id number] / / [id number] Cmpnt Fem Kn Lt Cr Cmnt Prm Vngrd Intlk Implanted:Qty: 1 on 05/28/2024 by Stew Phan MD at [facility] Left: Knee [employer] 03/20/2034 [id number] / / [id number] Insurance MEDICARE ANTH MEDICARE MEDICARE MEDICARE * Guarantor: JUSTNICATHY Account Type Relation to Patient Date of Phone Billing Address Personal/Family Spouse Advance Directives * Full Code (Latest Code Status on File) Date Activated Date Inactivated Comments 05/28/2024 3:42 PM 05/29/2024 3:28 PM * Full Code Date Activated Date Inactivated Comments 10/30/2019 10:51 AM 11/02/2019 1:53 PM Care Teams Baggage Handler Relationship Specialty Start Date End Date Lashae Patel MD [address] [place] [address] PCP - General Family Medicine 04/10/24 [place] [id number] [address] [address] Orthopedic Surgery 07/22/19
--- OUTSIDE RECORDS SUMMARY | 2024-12-25 15:36 | XMS_ITS | Clinical Summary ---
Author Organization [facility] Heather fuentes Jadadanikaalex Address [address] [place] [address] Care Team Providers Care Polisher And Buffer Name Role Phone Lashae Patel MD Primary Care Provider [phone] Allergies Active Allergy Reactions Criticality Noted Date [...] Comments DTAP/TDAP/TD VACCINES (1 - Tdap) 1966 PNEUMOCOCCAL VACCINE 50+ YEA RS (1 of 1 - PCV) 1997 ZOSTER VACCINE (1 of 2) 1997 RSV VACCINE (60+ or ) (1 - 1-dose 75+ series) 2022 INFLUENZA VACCINE (#1) 2024 OSTEOPOROSIS SCREENING 05/16/2029 05/16/2024, 2020 Insurance MEDICARE PART A AND B [facility] Care Teams Polisher And Buffer Relationship Specialty Start Date End Date Lashae Patel MD [address] [place] [address] [address] PCP - General Family Practice 05/14/24
--- OUTSIDE RECORDS SUMMARY | 2024-12-25 15:36 | XMS_ITS | Clinical Summary ---
Author Organization [facility] Address [address] [place] [address] Phone Care Team Providers Care Sample Display Preparer Name Role Phone Unavailable Primary Care Provider [...]
--- OUTSIDE RECORDS SUMMARY | 2024-12-25 15:36 | XMS_ITS | Continuity of Care Document ---
Author Organization [facility] Address [address] [place] [address] [address] [place] [address] Phone Care Team Providers Care Tie Sawyer Name Role Phone Elizabeth Herring Unavailable Unavailable Procedures Procedure Date Eye Exam Established Pt Office/outpatient Visit, Est Advance Directives Directive Yes / No Effective Date File Name No Information Encounters Encounter Description Practice Location Reason(s) For Visit Diagnoses Date Provider Providers Copied on Encounter [facility], [address] [place] [address] [address], [place], [place], [id number], tel:[phone] [facility] [place] No Information [phone] 0 Nevaeh Johnson. [address] [place] , [address], [place], [place], [facility], . tel:[phone] Office/outpat ient Visit, Est [facility], [address] [place] [address] [address], [place], [place], [id number], tel:[phone] [facility] [place] No Information 7-200 7 Nevaeh Louise [address] , [address], [place], [address], [place]. tel:[phone] Family History Family Member Type Diagnosis Age [...]
--- OUTSIDE RECORDS SUMMARY | 2024-12-25 15:36 | XMS_ITS | CONTINUITY OF CARE DOCUMENT ---
Author Name rush, rush Address Unknown Organization [facility] Address [address] [place] [address] Phone [phone] Care Team Providers Care Flight Operations Inspector Name Role Phone Dale Hyde MD Unavailable TOMASZ LIRA MD Unavailable [phone] TOMASZ LIRA MD Unavailable PROBLEMS Condition Status Date Provider Notes Other [...] In-person encounter Office Visit Dale Hyde MD [facility] High blood pressure - In-person encounter Office Visit Dale Hyde MD [facility] - In-person encounter Office Visit Dale Hyde MD [facility] - In-person encounter Office Visit Mario Flores MD [facility] Altered consciousness, potential TIA - In-person encounter Office Visit Dale Hyde MD [facility] - In-person encounter Office Visit Dale Hyde MD [facility] - In-person encounter Office Visit Dale Hyde MD [facility] - In-person encounter Office Visit Dale Hyde MD [facility] Other symptoms involving cardiovascular systemChest painHeartburnLeg [...] Loli Ale height E&M 64 [in_i] Loli [place] Body Mass Index (Ratio) 27.80 kg/m2 Jada Hyde MD blood pressure, diastolic 70 mm[Hg] [facility], systolic 120 mm[Hg] Gurvinder barton [place] oxygen saturation, oximetry 92 % [facility] respiratory rate E&M 16 /min [facility] 73 /min [facility] weight E&M 162 [lb_av] [facility] Reed height E&M 64 [in_i] [facility] Body Mass Index (Ratio) 27.29 kg/m2 Jada [...] Ofelia Carmona blood pressure, systolic 130 mm[Hg] Jena Carmona pulse rate 78 /min Susana morrison oxygen saturation, oximetry 97 % Susana Carmona respiratory rate E&M 16 /min David Carmona Body Mass Index (Ratio) 31.75 kg/m2 Nasreen Carmona weight E&M 185 [lb_av] Susana morrison blood pressure, diastolic 81 mm[Hg] Ofelia Carmona blood pressure, systolic 142 mm[Hg] Jena Carmona pulse rate 80 /min Susana morrison oxygen saturation, oximetry 93 % Susana Carmona respiratory rate E&M 16 [...] Normal Absolute Neutrophil count 2415 cells/mcL [employer] [id number] Normal mean platelet volume 10.6 fL [employer] [...] CAPSULE active 2 tabs 2x daily 4 lEena Reed VITAMIN D TABLET active 2000 international [...] Dale Hyde MD seatbelt usage 100 % [facility] exercise type housework Loli Ale physical exercise, f requency, days per week daily Loli [place] smoking status Never smoker [facility] exercise type housework Jasmin hermosillo physical [...] Payer name Policy type / Coverage type [place] red republican ID [facility] [id number] [place] MED[place] Medicare [id number] ADVANCE DIRECTIVES Name Date DISCUSSED - NO [...] reflux related. Will obtain Lexiscan stress test. Mario Flores MD Cardiology Follow up :Head CT [...] her symptoms. Would recommend patient see a call center representative for further work-up. Dale Hyde MD Cardiology:Stress [...] 48 Dale Hyde MD com pleted SNOMED-CT: 50035904 Physical Exam, Performed: Pulse Exam of Foot Dale Hyde MD completed EKG Dale Hyde MD completed SNOMED-CT: 519108799 352707 Current Medications Documented Dale Hyde MD completed SNOMED-CT: 49336257 Physical Exam, Performed: Pulse Exam of Foot Dale Hyde MD completed SNOMED-CT: 861724071 617409 Current Medications Documented Dale Hyde MD completed SNOMED-CT: 57213698 Physical Exam, Performed: Pulse Exam of Foot Dale Hyde MD completed SNOMED-CT: 713001400 079908 Current Medications Documented Dale Hyde MD completed Stress EKG Clif Amaya MD complete d Cardiolite, 2 units Mario case MD completed SPECT Images Mario Flores MD completed SNOMED-CT: 02971087 Physical Exam, Performed: Pulse Exam of Foot Dale Hyde MD completed EKG Dale Hyde MD completed SNOMED-CT: 992970490 301582 Current Medications Documented Dale Hyde MD completed
[2024-12-25 19:20] LABS: Basophils Absolute Auto 0.1 K/mm3 (0.0-0.1); Eosinophils Absolute Auto 0.2 K/mm3 (0-0.3); Eosinophils Percent Auto 2.9 % (0-4.4); Hematocrit 46.6 % (37.0-47.0); Hemoglobin 14.5 g/dL (12.0-15.0); Immature Granulocyte Absolute 0.01 K/mm3 (0.00-0.031); Immature Granulocyte Percent A 0.2 % (0-0.5); Lymphocytes Absolute Auto 1.18 K/mm3 (0.9-3.2); Lymphocytes Percent Auto 18.8 % (18.3-44.2); Mean Corpuscular HGB Conc 31.1 g/dl (32-36); Mean Corpuscular Hemoglobin 27.5 pg (26-34); Mean Corpuscular Volume 88.4 fl (80-100); Mean Platelet Volume 11.3 fl (7.4-10.4); Monocytes Absolute Auto 0.6 K/mm3 (0.1-0.6); Monocytes Percent Auto 9.3 % (2.6-8.5); Neutrophils Absolute Auto 4.3 K/mm3 (1.3-6.7); Neutrophils Percent Auto 67.8 % (45.5-73.1); Platelet Count Result 263 k/mm3 (150-375); Red Blood Count 5.27 M/mm3 (4.2-5.4); Red Cell Distribution Width 14.1 % (11.5-14.5); White Blood Count 6.3 K/mm3 (4.5-10.0)
[2024-12-25 20:24] LABS: Alanine Aminotransferase 19 U/L (6-35); Albumin Level 4.9 g/dL (3.5-5.1); Alkaline Phosphatase 80 U/L (38-126); Anion Gap 12 mmol/L (4-12); Aspartate Amino Transferase 26 U/L (14-36); Bilirubin,Total 0.5 mg/dL (0.2-1.3); Blood Urea Nitrogen 25 mg/dL (7-17); Calcium 10.1 mg/dL (8.4-10.2); Carbon Dioxide 29 mmol/L (22-30); Chloride 100 mmol/L (98-107); Estimated Glomerular Filt Rate > 60; Glucose 99 mg/dL (65-110); Potassium 4.1 mmol/L (3.4-5.0); Sodium 141 mmol/L (137-145)
[2024-12-25 20:56] LABS: Thyroid Stimulating Hormone 0.018 uIU/mL (0.465-4.680)
[2024-12-29 13:18] LABS: Immunoglobulin A 424 mg/dL (70-320); TTG IGA AB <1.0 U/mL
== END 2024-12-25 15:10 | disposition home or self-care (01) ==
LOC: ANHGOSHLAB 15:10
PROVIDERS: PCP Family Medicine; Visit Provider Family Medicine
DX: E53.8 Deficiency of other specified B group vitamins (principal); L65.9 Nonscarring hair loss, unspecified
CPT/HCPCS: 36415; 80053; 82607; 82784; 83516; 84443; 85025

== ENCOUNTER 2024-12-30 08:39 | Outpatient (CLI) | payer MEDICARE, BC, SELFPAY ==
--- NOTE | ~2024-12-30 | US_ITS ---
Limited Abdominal Sonogram: Real-time sonographic imaging of the right upper quadrant was performed. Clinical History: Abdominal pain Findings: The liver appears normal with no evidence of mass lesion or bile duct dilatation. Main por mauricio vein demonstrates normal direction of flow. The gallbladder is well distended, and appears normal with no evidence of gallstone or wall thickening. The common bile duct measures 5 mm. The visualize d pancreas, aorta, and IVC are unremarkable. Impression: No significant abnormality seen. Reviewed, dictated and finalized at location M. Impression: No significant abnormality seen.
== END 2024-12-30 08:40 | disposition home or self-care (01) ==
LOC: GOSHIMG 08:40
PROVIDERS: PCP Family Medicine; Visit Provider Family Medicine
DX: R10.11 Right upper quadrant pain (principal); R11.0 Nausea; R14.0 Abdominal distension (gaseous); L65.9 Nonscarring hair loss, unspecified
CPT/HCPCS: 76705

== ENCOUNTER 2025-01-14 07:55 | Outpatient (CLI) | payer MEDICARE, BC, SELFPAY ==
--- NOTE | ~2025-01-14 | NM_ITS ---
History: Right upper quadrant pain Interpretation: Following intravenous administration of 5.0 mCi. of technetium 99m Choletec, serial i mages obtained reveal prompt concentration by the liver which is normal in size and without any focal abnormalities. There is normal excretion from the liver. The gallbladder and small bowel are visua lized by 60 minutes. At 60 minutes the patient intravenously received 0.02 mcg/kg of CCK and 30 cc normal saline delivered by palm over 60 minutes. The patient was imaged for approximately the next 40 minutes. Regions of in terest were drawn about the gallbladder and background and gallbladder ejection fraction calculated. The gallbladder ejection fraction measures 47%. ( GBEF will measure > or = 49%, in 95% of normals. GBEF will measure > or= 38% in 99% of normals ) Impression: Normal hepatobiliary scan. No evidence of cystic duct or common bile duct obstruction. This effecti vely excludes acute cholecystitis. Gallbladder ejection fraction of 47%, at the lower limits of normal. Cornelius et al.,Sincalide-Stimulated Cholescintigraphy: A Multicenter Investigation to Determine Opti mal Infusion Methodology and Gallbladder Ejection Fraction Normal Values. JNM. Vol 51. No.2. Sep 2009 . Reviewed, dictated and finalized at location M. Impression: Normal hepatobiliary scan. No evidence of cystic duct or common bile duct obst ruction. This effectively excludes acute cholecystitis. Gallbladder ejection fraction of 47%, at the lower limits of normal. Cornelius et al.,Sincalide-Stimulated Cholescintigraphy: A Multicenter Investiga tion to Determine Optimal Infusion Methodology and Gallbladder Ejection Fractio n Normal Values. JNM. Vol 51. No.2. Sep 2009.
== END 2025-01-14 07:56 | disposition home or self-care (01) ==
LOC: ANHIMG 07:56
PROVIDERS: PCP Family Medicine; Visit Provider Family Medicine
DX: R79.89 Other specified abnormal findings of blood chemistry (principal); R53.83 Other fatigue; R10.11 Right upper quadrant pain; R11.0 Nausea
CPT/HCPCS: 36415; 78226; 84443; A9537

== ENCOUNTER 2025-04-20 01:09 | Day surgery (SDC) | payer MEDICARE, BC, SELFPAY ==
--- OUTSIDE RECORDS SUMMARY | 2010-04-14 08:15 | XMS_ITS | Continuity of Care Document ---
Author Organization [facility] Address [address] [place] [address] [address] [place] [address] Phone Care Team Providers Care Repairer Handtools Name Role Phone Elizabeth Herring Unavailable Unavailable Procedures Procedure Date Eye Exam Established Pt Office/outpatient Visit, Est Advance Directives Directive Yes / No Effective Date File Name No Information Encounters Encounter Description Practice Location Reason(s) For Visit Diagnoses Date Provider Providers Copied on Encounter [facility], [address] [place] [address] [address], [place], [place], [id number], tel:[phone] [facility] [place] No Information 9-201 0 Nevaeh Johnson. [address] [facility] [place] , [address], [place], [place], [facility], . tel:[phone] Office/outpat ient Visit, Est [facility], [address] [place] [address] [address], [place], [place], [id number], tel:[phone] [facility] [place] No Information 7-200 7 Nevaeh Louise [address] [facility] , [address], [place], [address], [place]. tel:[phone] Family History Family Member Type Diagnosis Age [...]
[2025-04-10 11:40] VITALS: BMI 31.5
--- OUTSIDE RECORDS SUMMARY | 2025-04-20 01:12 | XMS_ITS | Clinical Summary ---
Author Organization [facility] [employer] Address [address] [place] [address] Care Team Providers Care Photogrammetrist Name Role Phone Stew Phan MD Unavailable [phone] Lashae Patel MD Primary Care Provider [phone] Source Comments [facility] [employer],non-owned Affiliates and Associated Physician Practices is amultiple site organization consisting of ambulatory clinics and hospital sitesin [place], [place], [place] and [place]. This disclosure is being madepursuant to the Care Everywhere program and may not contain all information available regarding this patient. 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 Patient does not drink 10/02/202 4 Q3: How often do you have si [...] 129/49 05/29/2024 10:17 AM CDT Post ambulation. Takne on therapy Dinamap Pulse 71 05/29/2024 10:17 AM CDT Temperature 36.7 C (98.1 F) 05/29/2024 8:01 AM CDT Respiratory Rate 17 05/29/2024 8:01 AM CDT Oxygen Saturation 98% 05/29/2024 9:2 7 AM CDT Inhaled Oxygen Concentration - - Weight 78.9 kg (174 lb) 05/28/2024 9:29 AM CDT Height 157.5 cm (5' 2) 05/28/2024 9:29 AM CDT Body Mass Index 31.83 05/28/2024 9:29 AM CDT Plan of Treatment Upcoming Encounters Date Type Department Care Team (Late st Contact Info) Description 05/11/2025 2:00 PM CDT Office Visit [facility] Orthopedics [address] [place] [address], [facility] [address] [place] [address] Jessica Blood [facility] [id number] [address] Health Maintenance Due Date Last Done Comments BONE DENSITY TESTING 1945 MEDICARE AWV 12 MONTHS 1945 HEPATITIS C SCREENING 03/30/1965 DTAP/TDAP/TD VACCINES (1 - Tdap) 1966 PNEUMOCOCCAL VACCINE 50+ (1 of 1 - PCV) 1997 ZOSTER VACCINE (1 of 2) 1997 Respiratory Syncytial Virus (RSV) Vaccine Pt: or over 60 yrs (1 - 1-dose 75+ series) 2022 COVID-19 VACCINE ( - 2023-2 5 season) 2024 DEPRESSION SCREENING 08/27/2024 07/08/2024 INFLUENZA VACCINE (#1) 2025 HEPATITIS B VACCINE Aged Out No [...] on patient's age to complete this topic Goals Goal Patient Goal Type Associated Problems Recent Progress Patient-Stated? Author Autogenerat ed Goal Care Plan Autogenerated Problem No [employer]ster [employer] Implanted Type Area Care Information Associate Device Identifier Shelf Expiration Date Model / Serial / Lot Cmnt Bone Djo Srg Cblt 40gm Hvisc Strl Implanted:Qty: 1 on 10/30/2019 by Stew Phan MD at [facility] Right: Knee [employer] 06/25/2020 [id number] / / [id number] Tray Tib 67mm Kn Cocr I Beam Implanted:Qty: 1 on 10/30/2019 by Stew Phan MD at [facility] Right: Knee [employer] 07/04/2029 [id number] / / [id number] Cmpnt Fem Kn Rt Cr Cmnt Prm Vngrd Intlk Implanted:Qty: 1 on 10/30/2019 by Stew Phan MD at [facility] Right: Knee [employer] 07/03/2029 [id number] / / [id number] Cmpnt Ptlr 28mm 1 Pg Wire Ascnt Arcm Kn Implanted:Qty: 1 on 10/30/2019 by Stew Phan MD at [facility] Right: Knee [employer] 09/20/2024 [id number] / / [id number] Brng [id number] Vngrd Arcm Kn Ant Stab Implanted:Qty: 1 on 10/30/2019 by Stew Phan MD at [facility] Right: Knee [employer] 10/02/2024 [id number] / / [id number] Brng [id number] Vngrd Arcm Kn Ant Stab Implanted:Qty: 1 on 05/28/2024 by Stew Phan MD at [facility] Left: Knee [employer] 07/10/2028 [id number] / / [id number] Cmnt Bone Plc R 40gm Grn Implanted:Qty: 1 on 05/28/2024 by Stew Phan MD at [facility] Left: Knee [employer] 08/26/2026 [id number] / / [id number] Tray Tib 71mm Kn Cocr I Beam Implanted:Qty: 1 on 05/28/2024 by Stew Phan MD at [facility] Left: Knee [employer] 12/01/2032 [id number] / / [id number] Cmpnt Ptlr Std 28mm 3 Pg Kn Ser A Implanted:Qty: 1 on 05/28/2024 by Stew Phan MD at [facility] Left: Knee [employer] [id number] / / [id number] Cmpnt Fem Kn Lt Cr Cmnt Prm Vngrd Intlk Implanted:Qty: 1 on 05/28/2024 by Stew Phan MD at [facility] Left: Knee [employer] 03/20/2034 [id number] / / [id number] Additional Health Concerns Active Problems Noted Date Diagnosed Date Autogenerated Problem 03/24/2025 Insurance MEDICARE [facility] MEDICARE MEDICARE MEDICARE * Guarantor: CATHY MART Account Type Relation to Patient Date of Phone Billing Address Personal/Family Spouse Advance Directives * Full Code (Latest Code Status on File) Date Activated Date Inactivated Comments 05/28/2024 3:42 PM 05/29/2024 3:28 PM * Full Code Date Activated Date Inactivated Comments 10/30/2019 10:51 AM 11/02/2019 1:53 PM Care Teams Photogrammetrist Relationship Specialty Start Date End Date Lashae Patel MD [address] [place] [id number] PCP - General Family Medicine 04/10/24 [place] [id number] [place] [address] Orthopedic Surgery 07/22/19
--- OUTSIDE RECORDS SUMMARY | 2025-04-20 01:12 | XMS_ITS | Clinical Summary ---
Author Organization [facility] Heather fuentes Noemi Address [address] [place] [address] Care Team Providers Care Automobile Brake Bonder Name Role Phone Lashae Patel MD Primary Care Provider Allergies Active Allergy Reactions Criticality Noted Date [...] Encounters Date Type Department Care Team Description 04/15/2025 External Device Data ST[facility] ABSTRACTION Provider, Abstract 04/01/2025 External Device Data [facility] ABSTRACTION Provider, Abstract 03/11/2025 External Device Data [facility] ABSTRACTION Provider, Abstract 03/11/2025 External Device Data [facility] ABSTRACTION Provider, Abstract 03/10/2025 External Device Data [facility] ABSTRACTION Provider, Abstract 02/11/2025 External Device Data [facility] ABSTRACTION Provider, Abstract 02/10/2025 External Device Data [facility] ABSTRACTION Provider, Abstract 01/20/2025 External Device Data ST[facility] ABSTRACTION Provider, Abstract [...] 10:42 AM CDT Height 157.5 cm (5' 2) 04/23/2024 10:19 AM CDT Body Mass Index 31.64 04/23/2024 10:19 AM CDT Plan of Treatment Health Maintenance Due Date Last Done Comments DTAP/TDAP/TD VACCINES (1 - Tdap) 1966 PNEUMOCOCCAL VACCINE 50+ YEA RS (1 of 1 - PCV) 1997 ZOSTER VACCINE (1 of 2) 1997 RSV VACCINE (60+ or ) (1 - 1-dose 75+ series) 2022 INFLUENZA VACCINE (#1) 2025 OSTEOPOROSIS SCREENING 05/16/2029 05/16/2024, 2020 Insurance MEDICARE PART A AND B [facility] Care Teams Automobile Brake Bonder Relationship Specialty Start Date End Date Lashae Patel MD [address] [facility] [address] [id number] PCP - General Family Practice 05/14/24
[2025-04-20 07:52] VITALS: BP 147/86; PULSE 71; RESP 16; TEMP 36.3; O2SAT 100; BMI 31.7
--- NOTE | 2025-04-20 08:09 | WPDANESEPPF ---
Anes - Initial Pre Proc Eval Procedure: Operation Date: 04/20/25 10:00 Proposed Procedures p Esophagogastroduodenoscopy - Rico Aguilera MD Date/Time: 04/20/25 08:09 Surgeon: Rico Aguilera MD Pre Op Diagnosis: Acute pharyngitis, unspecified, Nausea Patient Data Age: 80 Gender: F Height: 1.6 m Weight: 81.2 kg Last Vital Signs Temp 36.3 C L 04/20/25 07:52 Pulse 71 04/20/25 07:52 Resp 16 04/20/25 07:52 BP 147/86 H 04/20/25 07:52 Pulse Ox 100 04/20/25 07:52 O2 Del Method Room Air 04/20/25 07:52 Allergies Allergy/AdvReac Type Severity Reaction Status Date / Time Sulfa (Sulfonamide Allergy Intermediate Hives Verified 04/20/25 08:00 Antibiotics) Home Medications ?Medication ?Instructions ?Recorded ?Confirmed ?Type aspirin 81 mg tablet,delayed 81 mg PO DAILY 03/28/23 04/20/25 History release (Yari Low Dose Aspirin) cholecalciferol (vitamin D3) 50 50 mcg PO DAILY 03/28/23 04/20/25 History mcg (2,000 unit) capsule docusate sodium 50 mg capsule 100 mg PO BID 03/28/23 04/20/25 History magnesium 250 mg tablet 250 mg PO DAILY 03/28/23 04/20/25 History Prevagen 1 tablet PO DAILY 03/29/23 04/20/25 History lactobacillus combination no.8 3 1 cell PO DAILY 03/29/23 04/20/25 History billion cell capsule multivitamin with minerals 1 tablet PO DAILY 03/29/23 04/20/25 History (Hair,Skin and Nails tablet) vitamin E 400 unit tablet 45 mg PO DAILY 03/29/23 04/20/25 History mecobalamin (vitamin B12) 1,000 1,000 mcg PO .MWF 05/02/24 04/20/25 History mcg chewable tablet Viviscal 1 cap PO BID 12/25/24 04/20/25 History calcium 500 mg PO BID 12/25/24 04/20/25 History celecoxib 200 mg capsule 200 mg PO Q24H PRN pain 12/25/24 04/10/25 History famotidine 20 mg tablet 20 mg PO DAILY #60 tabs 12/25/24 04/10/25 Rx ondansetron 4 mg disintegrating 4 mg PO Q8H PRN nausea and 01/20/25 04/10/25 Rx tablet vomiting #30 tabs omeprazole 40 mg capsule,delayed See Rx Instructions .Route 04/16/25 04/20/25 Rx release .COMPLEX #90 caps Patient hx anesthesia problems: none Family hx anesthesia problems: none Results Review: All pre-operative results and documents have been reviewed as part of the pre-operative evaluation. [facility] Past Medical History Medical History Abnormal thyroid function test on levothyroxine. was on biotin. normalized off biotin. 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 Surgical History Surgical History Knee joint replacement by other means H/O abdominal hysterectomy (~2005) Total knee replacement status (~2018) Social History Social History Smoking status: Never smoker Alcohol intake: never Substance use: never Substance use type: does not use Do You Feel Safe in your Home?: Yes Lack of Transportation: No Lack of Food: Never True Current Housing: I Have Housing Concerned About Future Housing: No Difficulty Paying Gas/Electric Bills: No Difficulty Paying for Meds: No Currently Unemployed: No Education: Trade/Vocational Certificate Difficulty w/ Childcare or Family Care: No Living arrangements: with family Spiritual care concerns: No Anes - Eval Final PreProcedure Day of Procedure 04/20/25 08:09 Patient weight: obese Heart: regular rate and rhythm Lungs: clear to auscultation Airway: Mallampati scale class II Neurological: alert and oriented Last oral intake: >/= 8 hours ASA classification: II Emergent: no Anesthetic plan: proceed Anesthesia type and monitoring: general GIVS and standard monitoring Results Review: All pre-operative results and documents have been reviewed as part of the pre-operative evaluation. Informed Consent: The patient's anesthetic plan and its attendant risks and benefits were discussed with the patient/family/POA. Questions were solicited and answers provided to the satisfaction of the patient/family/POA.
[2025-04-20] MEDS: LACTATED RINGERS 1,000 ML 150 ML IV CONT (08:20)
[2025-04-20] MEDS: AMPICILLIN SODIUM 2 GM in SODIUM CHLORIDE 0.9% IV 100 ML 200 ML IVPB (08:20)
--- NOTE | 2025-04-20 08:56 | PM.HPGS ---
History of Present Illness History of Present Illness Consent: Risks, benefits, and alternatives have been discussed and questions answered. Patient agrees to proceed with procedure. Chief complaint: Acute pharyngitis, unspecified, Nausea Narrative: Cathy Anderson is a 80 year old female with murray's esophagus in 2022 using omeprazole, also bloating Review of Systems Review of Systems: All systems reviewed & are unremarkable except as noted in HPI and below PMFSH Past Medical History Medical History Abnormal thyroid function test on levothyroxine. was on biotin. normalized off biotin. 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 Surgical History Surgical History Knee joint replacement by other means H/O abdominal hysterectomy (~2005) Total knee replacement status (~2018) Social History Social History Smoking status: Never smoker Alcohol intake: never Substance use: never Substance use type: does not use Do You Feel Safe in your Home?: Yes Lack of Transportation: No Lack of Food: Never True Current Housing: I Have Housing Concerned About Future Housing: No Difficulty Paying Gas/Electric Bills: No Difficulty Paying for Meds: No Currently Unemployed: No Education: Trade/Vocational Certificate Difficulty w/ Childcare or Family Care: No Living arrangements: with family Spiritual care concerns: No Meds Home Medications and Allergies Home Medications ?Medication ?Instructions ?Recorded ?Confirmed ?Type aspirin 81 mg tablet,delayed 81 mg PO DAILY 03/28/23 04/20/25 History release (Yari Low Dose Aspirin) cholecalciferol (vitamin D3) 50 50 mcg PO DAILY 03/28/23 04/20/25 History mcg (2,000 unit) capsule docusate sodium 50 mg capsule 100 mg PO BID 03/28/23 04/20/25 History magnesium 250 mg tablet 250 mg PO DAILY 03/28/23 04/20/25 History Prevagen 1 tablet PO DAILY 03/29/23 04/20/25 History lactobacillus combination no.8 3 1 cell PO DAILY 03/29/23 04/20/25 History billion cell capsule multivitamin with minerals 1 tablet PO DAILY 03/29/23 04/20/25 History (Hair,Skin and Nails tablet) vitamin E 400 unit tablet 45 mg PO DAILY 03/29/23 04/20/25 History mecobalamin (vitamin B12) 1,000 1,000 mcg PO .MWF 05/02/24 04/20/25 History mcg chewable tablet Viviscal 1 cap PO BID 12/25/24 04/20/25 History calcium 500 mg PO BID 12/25/24 04/20/25 History celecoxib 200 mg capsule 200 mg PO Q24H PRN pain 12/25/24 04/10/25 History famotidine 20 mg tablet 20 mg PO DAILY #60 tabs 12/25/24 04/10/25 Rx ondansetron 4 mg disintegrating 4 mg PO Q8H PRN nausea and 01/20/25 04/10/25 Rx tablet vomiting #30 tabs omeprazole 40 mg capsule,delayed See Rx Instructions .Route 04/16/25 04/20/25 Rx release .COMPLEX #90 caps Allergies Allergy/AdvReac Type Severity Reaction Status Date / Time Sulfa (Sulfonamide Allergy Intermediate Hives Verified 04/20/25 08:00 Antibiotics) Vital Signs Vital Signs - 24 hr 04/20/25 07:52 Temperature 97.3 F L Pulse Rate 71 Respiratory Rate 16 Blood Pressure 147/86 H Pulse Oximetry 100 Oxygen Delivery Room Air Exam Const: General: comfortable and no acute distress HENMT: Face/Nose/Sinus: Normal nares present Eyes: General: appearance normal, both eyes and all related structures Neck: Neck: no JVD Resp: Auscultation: clear to auscultation bilaterally Cardio: Rate: regular rate Rhythm: regular rhythm GI: Inspection: non-distended GI Palp: Yes Soft to palpation Skin: General skin exam: normal color Neuro: Speech: normal speech Extrem: General: normal to inspection Psych: Mental Status: mental status grossly normal Assessment and Plan Assessment and plan (1) Murray esophagus: Qualifiers: Murray's esophagus type: without dysplasia Qualified Code(s): K22.70 - Murray's esophagus without dysplasia Code(s): K22.70 - Murray's esophagus without dysplasia Status: Acute Assessment and Plan: egd
--- NOTE | 2025-04-20 09:10 | WPDANESEPPF ---
Anes - Initial Pre Proc Eval Procedure: Operation Date: 04/20/25 10:00 Proposed Procedures p Esophagogastroduodenoscopy - Rico Aguilera MD Date/Time: 04/20/25 09:10 Surgeon: Rico Aguilera MD Pre Op Diagnosis: Acute pharyngitis, unspecified, Nausea Patient Data Age: 80 Gender: F Height: 1.6 m Weight: 81.2 kg Last Vital Signs Temp 36.3 C L 04/20/25 07:52 Pulse 71 04/20/25 07:52 Resp 16 04/20/25 07:52 BP 147/86 H 04/20/25 07:52 Pulse Ox 100 04/20/25 07:52 O2 Del Method Room Air 04/20/25 07:52 Allergies Allergy/AdvReac Type Severity Reaction Status Date / Time Sulfa (Sulfonamide Allergy Intermediate Hives Verified 04/20/25 08:00 Antibiotics) Home Medications ?Medication ?Instructions ?Recorded ?Confirmed ?Type aspirin 81 mg tablet,delayed 81 mg PO DAILY 03/28/23 04/20/25 History release (Yari Low Dose Aspirin) cholecalciferol (vitamin D3) 50 50 mcg PO DAILY 03/28/23 04/20/25 History mcg (2,000 unit) capsule docusate sodium 50 mg capsule 100 mg PO BID 03/28/23 04/20/25 History magnesium 250 mg tablet 250 mg PO DAILY 03/28/23 04/20/25 History Prevagen 1 tablet PO DAILY 03/29/23 04/20/25 History lactobacillus combination no.8 3 1 cell PO DAILY 03/29/23 04/20/25 History billion cell capsule multivitamin with minerals 1 tablet PO DAILY 03/29/23 04/20/25 History (Hair,Skin and Nails tablet) vitamin E 400 unit tablet 45 mg PO DAILY 03/29/23 04/20/25 History mecobalamin (vitamin B12) 1,000 1,000 mcg PO .MWF 05/02/24 04/20/25 History mcg chewable tablet Viviscal 1 cap PO BID 12/25/24 04/20/25 History calcium 500 mg PO BID 12/25/24 04/20/25 History celecoxib 200 mg capsule 200 mg PO Q24H PRN pain 12/25/24 04/10/25 History famotidine 20 mg tablet 20 mg PO DAILY #60 tabs 12/25/24 04/10/25 Rx ondansetron 4 mg disintegrating 4 mg PO Q8H PRN nausea and 01/20/25 04/10/25 Rx tablet vomiting #30 tabs omeprazole 40 mg capsule,delayed See Rx Instructions .Route 04/16/25 04/20/25 Rx release .COMPLEX #90 caps Patient hx anesthesia problems: none Family hx anesthesia problems: none Results Review: All pre-operative results and documents have been reviewed as part of the pre-operative evaluation. [facility] Past Medical History Medical History Abnormal thyroid function test on levothyroxine. was on biotin. normalized off biotin. 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 Surgical History Surgical History Knee joint replacement by other means H/O abdominal hysterectomy (~2005) Total knee replacement status (~2018) Social History Social History Smoking status: Never smoker Alcohol intake: never Substance use: never Substance use type: does not use Do You Feel Safe in your Home?: Yes Lack of Transportation: No Lack of Food: Never True Current Housing: I Have Housing Concerned About Future Housing: No Difficulty Paying Gas/Electric Bills: No Difficulty Paying for Meds: No Currently Unemployed: No Education: Trade/Vocational Certificate Difficulty w/ Childcare or Family Care: No Living arrangements: with family Spiritual care concerns: No Anes - Eval Final PreProcedure Day of Procedure 04/20/25 09:10 Patient weight: obese Heart: regular rate and rhythm Lungs: clear to auscultation Airway: Mallampati scale class II Neurological: alert and oriented Last oral intake: >/= 8 hours Results Review: All pre-operative results and documents have been reviewed as part of the pre-operative evaluation. Informed Consent: The patient's anesthetic plan and its attendant risks and benefits were discussed with the patient/family/POA. Questions were solicited and answers provided to the satisfaction of the patient/family/POA.
--- NOTE | 2025-04-20 09:41 | S_PTH ---
PATIENT: Cathy Anderson LOC: [facility]#:[id number] AGE/SX: 80/F ROOM: RE04/20/[address]: Rico Aguilera MD : 1945 BED: DIS: 04/20/2025 SPEC #: [id number] RECD: 04/20/25 10:26 STATUS: MARLINE REMelody #: [id number] SAMANTA: 04/20/25 09:[address]: Rico Aguilera DEPT: [facility] Surgical RECD BY: Maki Fournier ENTERED: 04/20/25 10:26 SP TYPE: Surgical OTHR DR: Lashae Patel MD Tissues: A - Small Bowel Bx B - Gastric Biopsy C - Esophageal Biopsy Procedures: Hematoxylin and Eosin Stain Gross and Microscopic Level 4
[2025-04-20 09:42] VITALS: BP 116/60; PULSE 80; RESP 20; O2SAT 98
[2025-04-20 09:52] VITALS: BP 140/59; PULSE 73; RESP 20; O2SAT 98
[2025-04-20 10:02] VITALS: BP 144/87; PULSE 70; RESP 20; O2SAT 99
== END 2025-04-20 10:10 | disposition home or self-care (01) ==
PROVIDERS: PCP Family Medicine; Referring Provider Nurse Practitioner Family; Visit Provider Internal Medicine Gastroenterology
PROC: 0DJ08ZZ Inspection of Upper Intestinal Tract, Via Natural or Artificial Opening Endoscopic (ICD-10-PCS; CPT 43239; principal; 2025-04-20 10:00)
DX: K31.7 Polyp of stomach and duodenum (principal); K44.9 Diaphragmatic hernia without obstruction or gangrene; E66.9 Obesity, unspecified; Z68.31 Body mass index [BMI] 31.0-31.9, adult; Z98.890 Other specified postprocedural states; Z79.82 Long term (current) use of aspirin; Z79.1 Long term (current) use of non-steroidal anti-inflammatories (NSAID); Z87.19 Personal history of other diseases of the digestive system
CPT/HCPCS: 43239; 88305; J0290; J2003; J2704; J7120

== ENCOUNTER 2025-05-14 09:12 | Emergency (ER) | payer MEDICARE, BC, SELFPAY ==
--- OUTSIDE RECORDS SUMMARY | 2010-04-14 08:15 | XMS_ITS | Continuity of Care Document ---
Author Organization [facility] Address [address] [place] [address] [address] [place] [address] Phone Care Team Providers Care Motor Vehicle Assembly Supervisor Name Role Phone Elizabeth Herring Unavailable Unavailable Procedures Procedure Date Eye Exam Established Pt Office/outpatient Visit, Est Advance Directives Directive Yes / No Effective Date File Name No Information Encounters Encounter Description Practice Location Reason(s) For Visit Diagnoses Date Provider Providers Copied on Encounter [facility], [address] [place] [address] [address], [place], [place], [id number], tel:[phone] [facility] [place] No Information 9-201 0 Nevaeh Johnson. [address] [facility] [place] , [address], [place], [place], [facility], . tel:[phone] Office/outpat ient Visit, Est [facility], [address] [place] [address] [address], [place], [place], [id number], tel:[phone] [facility] [place] No Information 7-200 7 Nevaeh Louise [address] [facility] , [address], [place], [address], [place]. tel:[phone] Family History Family Member Type Diagnosis Age At Onset No Information Payers Payer name Insurance type Covered green party ID Authoriza tion(s) No Information Social History [...]
--- NOTE | ~2025-05-14 | CT_ITS ---
CTA CHEST CLINICAL HISTORY: tachycardia, hx of blood clots . COMPARISON: Chest x-ray today TECHNIQUE: Helical CTA performed from thoracic inlet to upper abdomen IV contrast information not listed in PACS Coronal, sagittal reformats. Multiplanar MIPS CT images acquired with automatic exposure control for dose reduction DLP: 484 mGy-cm FINDINGS: Pulmonary arteries: No PE. Thoracic Aorta: No dissection or aneurysm. Heart/pericardium: Cardiomegaly. RV/LV ratio: Normal. Lungs/Pleura: Scattered mild reticular changes, greatest bibasilar. Tracheobronchial tree: Patent. Nodes: A few small hilar and mediastinal nodes. Mediastinal and left hilar calcification Bones: No acute bony abnormality. Soft tissues: Small cystic nodule right lobe thyroid. Visualized upper abdomen: Hepatomegaly, with steatosis. Small hiatal hernia. IMPRESSION: 1. No PE. 2. Mild interstitial pulmonary edema, pneumonitis, and/or interstitial lung disease. 3. Cardiomegaly. Reviewed, dictated and finalized at location R. IMPRESSION: 1. No PE. 2. Mild interstitial pulmonary edema, pneumonitis, and/or interstitial lung di sease. 3. Cardiomegaly.
--- NOTE | ~2025-05-14 | XR_ITS ---
Examination: XR chest 2V Clinical History: increased congestion, fever, chills, nausea x 3 days Comparison: None Technique: PA and Lateral Findings: Cardiomediastinal silhouette normal size and configuration. Subtle opacity within lingula. Calcified granuloma left base. No acute bony abnormality. Osteopenia. IMPRESSION: 1. Subtle pneumonitis or airspace disease within left lung base. Reviewed, dictated and finalized at location R.
[2025-05-14 09:24] VITALS: BP 97/85; PULSE 112; RESP 16; TEMP 37.2; O2SAT 94
--- NOTE | 2025-05-14 09:37 | ECG_ITS ---
Test Date: 2025-05-14 10:02:26 Measurements Intervals [place] Rate: 109 P: 25 DE: 155 QRS: -39 QRSD: 102 T: 53 QT: 295 QTc: 397 Interpretive Statements SINUS TACHYCARDIA MARKED LEFT AXIS DEVIATION [QRS AXIS < -30] VOLTAGE CRITERIA FOR LVH [MEETS CRITERIA IN ONE OF: R(aVL), S(V1), R(V5), R(V5/V6)+S(V1)] POSSIBLE ANTERIOR MYOCARDIAL INFARCTION , OF INDETERMINATE AGE [30 ms Q WAVE IN V3/V4, OR R < 0.2 mV IN V4] ABNORMAL ECG No previous ECG available for comparison Electronically Signed On 05-14-2025 12:34:10 CDT by Asher Fountain M.D.
--- OUTSIDE RECORDS SUMMARY | 2025-05-14 09:37 | XMS_ITS | Clinical Summary ---
Author Organization [facility] Address [address] [facility] [address] Care Team Providers Care Confectionery Maker Name Role Phone Stew Phan MD Unavailable [phone] Lashae Patel MD Primary Care Provider [phone] Source Comments [facility],non-owned Affiliates and Associated Physician Practices is amultiple site organization consisting of ambulatory clinics and hospital sitesin [place], [place], [place] and [place]. This disclosure is being madepursuant to the Care Everywhere program and may not contain all information available regarding this patient. Last updated 18.[facility] Allergies Active Allergy Reactions Criticality Noted Date [...] PO) Take 120 mg by mouth Active [place]-3 Krill Oil 500 MG Active Biotin 5000 [...] Answer Date Recorded Patient Health Questionnaire-2 Score 1 05/11/2025 Hunger Vital Sign Answer Date Recorded Within [...] Care Team (Late st Contact Info) Description 05/19/2025 1:15 PM CDT Office Visit [facility] [id number] [place] [address], [facility] [address] [place] [address] Jessica Blood [facility] [id number] [address] Health Maintenance Due Date Last Done Comments BONE DENSITY TESTING 1945 MEDICARE AWV 12 MONTHS 1945 HEPATITIS C SCREENING 03/30/1965 DTAP/TDAP/TD VACCINES (1 - Tdap) 1966 PNEUMOCOCCAL VACCINE 50+ (1 of 1 - PCV) 1997 ZOSTER VACCINE (1 of 2) 1997 Respiratory Syncytial Virus (RSV) Vaccine Pt: or over 60 yrs (1 - 1-dose 75+ series) 2022 DEPRESSION SCREENING 08/27/2024 07/08/2024 COVID-19 VACCINE ( - 2023- season) 2025 INFLUENZA VACCINE (#1) 2025 , 06/06/2017, 06/02/2015, Additional history exists HEPATITIS B VACCINE Aged Out No longe r eligible based on patient's age to complete this topic HIB VACCINE Aged Out No longer eligi ble based on patient's age to complete this topic HPV VACCINE Aged Out No longer eligi ble based on patient's age to complete this topic MENINGOCOCCAL (Group B) VACCINE SHARED DECISION-MAKING Aged Out No longer eligible based on patient's age to complete this topic MENINGOCOCCAL GROUPS A/C/Y/W VACCINE Aged Out No longer eligible based on patient's age to complete this topic Goals Goal Patient Goal Type Associated Problems Recent Progress Patient-Stated? Author Autogenerat ed Goal Care Plan Autogenerated Problem No Ester [employer] Implanted Type Area Mid Level Clinician Device Identifier Shelf Expiration Date Model / Serial / Lot Cmnt Bone Djo Srg Cblt 40gm Hvisc Strl Implanted:Qty: 1 on 10/30/2019 by Stew Phan MD at [facility] Right: Knee [employer] 06/25/2020 [id number] / / [id number] Tray Tib 67mm Kn Cocr I Beam Implanted:Qty: 1 on 10/30/2019 by Stew Phan MD at [facility] Right: Knee [employer] 07/04/2029 [id number] / / [id number] Cmpnt Fem Kn Rt Cr Cmnt Prm Vngrd Intlk Implanted:Qty: 1 on 10/30/2019 by Stew Phan MD at [facility] Right: Knee [employer] 07/03/2029 [id number] / / [id number] Cmpnt Ptlr 28mm 1 Pg Wire Ascnt Arcm Kn Implanted:Qty: 1 on 10/30/2019 by Stew Phan MD at [facility] Right: Knee [employer] 09/20/2024 [id number] / / [id number] Brng [id number] Vngrd Arcm Kn Ant Stab Implanted:Qty: 1 on 10/30/2019 by Stew Phan MD at [facility] Right: Knee [employer] 10/02/2024 [id number] / / [id number] Brng [id number] Vngrd Arcm Kn Ant Stab Implanted:Qty: 1 on 05/28/2024 by Stew Phan MD at [facility] Left: Knee [employer] 07/10/2028 [id number] / / [id number] Cmnt Bone Plc R 40gm Grn Implanted:Qty: 1 on 05/28/2024 by Stew Phan MD at [facility] Left: Knee [employer] 08/26/2026 [id number] / / [id number] Tray Tib 71mm Kn Cocr I Beam Implanted:Qty: 1 on 05/28/2024 by Stew Phan MD at [facility] Left: Knee [employer] 12/01/2032 [id number] / / [id number] Cmpnt Ptlr Std 28mm 3 Pg Kn Ser A Implanted:Qty: 1 on 05/28/2024 by Stew Phan MD at [facility] Left: Knee [employer] [id number] / / [id number] Cmpnt Fem Kn Lt Cr Cmnt Prm Vngrd Intlk Implanted:Qty: 1 on 05/28/2024 by Stew Phan MD at [facility] Left: Knee [employer] 03/20/2034 [id number] / / [id number] Additional Health Concerns Active Problems Noted Date Diagnosed Date Autogenerated Problem 03/24/2025 Insurance MEDICARE ANTH SELF PAY NO INSURANCE Member Subscriber Plan / Payer (Ef fective for All Dates) Name:Cathy Mart Member ID:Not on file Relation to Subscriber:Not on file Name:CATHY MART Subscriber ID:Not on file (Home) Address: [address] [place] [id number] Payer ID:Not on file Group ID:Not on file Type:Self Pay Address: [place], [place] MEDICARE MEDICARE * Guarantor: BARRONCATHY Account Type Relation to Patient Date of Phone Billing Address Personal/Family Spouse Advance Directives * Full Code (Latest Code Status on File) Date Activated Date Inactivated Comments 05/28/2024 3:42 PM 05/29/2024 3:28 PM * Full Code Date Activated Date Inactivated Comments 10/30/2019 10:51 AM 11/02/2019 1:53 PM Care Teams Confectionery Maker Relationship Specialty Start Date End Date Lashae Patel MD [address] [place] [address] PCP - General Family Medicine 04/10/24 [place] [address] [place] [address] Orthopedic Surgery 07/22/19
--- OUTSIDE RECORDS SUMMARY | 2025-05-14 09:37 | XMS_ITS | Clinical Summary ---
Author Organization [facility] Heather fuentes Noemi Address [address] [place] [address] Care Team Providers Care Project Engineer Name Role Phone Lashae Patel MD Primary Care Provider [phone] Allergies Active Allergy Reactions Criticality Noted Date [...] Encounters Date Type Department Care Team Description 04/28/2025 External Device Data [facility] ABSTRACTION Provider, Abstract 04/15/2025 External Device Data [facility] ABSTRACTION Provider, [...] 2020 Insurance MEDICARE PART A AND B [facility] Care Teams Project Engineer Relationship Specialty Start Date End Date Lashae Patel MD [address] [facility] [address] [address] PCP - General Family Practice 05/14/24
--- OUTSIDE RECORDS SUMMARY | 2025-05-14 09:37 | XMS_ITS | Clinical Summary ---
Author Organization [facility] Address [address] [place] [address] Phone Care Team Providers Care Carton Filler Name Role Phone Unavailable Primary Care Provider Unavailabl e Social History Tobacco Use Types Packs/Day Years Used Date Smoking Tobacco: Never Assessed Comments Unknown Sex and Gender Information Value Date Recorded Sex Assigned at Not on file Legal Sex Female 7:38 AM CDT Gender Identity Not on file Sexual Orientation Not on file Plan of Treatment Health Maintenance Due Date Last Done Comments Hepatitis C Virus (HCV) Screening 1945 TdaP Immunization 1945 Zoster Immunization (1 of 2) 1997 Pneumococcal Immunization (50+ years) (2 of 2 - PCV20 or PCV21) 06/14/2016 06/14/2015 Respiratory Syncytial Virus (RSV) Immunization (Adult) (1 - 1-dose 75+ series) 2022 SARS-COV-2 Immunization ( season) 2024 06/27/2021, 11/14/2020, 10/24/2020 Influenza Immunization (#1) 04/27/202505/27, 06/02/2015, 07/09/2014, Additional history exists Hepatitis B Immunization Aged Out No longer eligible based on patient's age to complete this topic Human Papillomavirus (HPV) Immunization Aged Out No longer eligible based on patient's age to complete this topic Meningococcal Immunization (ACWY) Aged Out No longer eligible based on patient's age to complete this topic Rotavirus Immunization Aged Out No lo nger eligible based on patient's age to complete this topic
--- NOTE | 2025-05-14 09:39 | ED.NAVMDI ---
HPI - Nausea/Vomiting/Diarrhea General Chief complaint: Nausea/Vomiting/Diarrhea Stated complaint: possible sepsis Time Seen by Provider: 05/14/25 09:18 History of Present Illness HPI Narrative: Patient is a 80-year-old female who presents to the ER with complaints of abdominal pain, nausea, sweats and chills. She reports she was diagnosed with a urinary tract infection on Sunday and started taking antibiotics that evening. Patient reports last night she started experiencing these new symptoms. She endorses a history of Patiño's esophagitis, bilateral knee replacement, hysterectomy, and chronic back pain. Patient reports this is her 1st urinary tract infection. She denies any chest pain, shortness of breath, or new onset back pain. According to her medical records she has a history of blood clots and is not on a blood thinner. Related Data Home Medications ?Medication ?Instructions ?Recorded ?Confirmed ?Last Taken ?Type aspirin 81 mg tablet,delayed 81 mg PO DAILY 03/28/23 04/20/25 04/19/25 History release (Yari Low Dose Aspirin) cholecalciferol (vitamin D3) 50 50 mcg PO DAILY 03/28/23 04/20/25 04/19/25 History mcg (2,000 unit) capsule docusate sodium 50 mg capsule 100 mg PO BID 03/28/23 04/20/25 04/19/25 History magnesium 250 mg tablet 250 mg PO DAILY 03/28/23 04/20/25 04/19/25 History Prevagen 1 tablet PO DAILY 03/29/23 04/20/25 04/19/25 History lactobacillus combination no.8 3 1 cell PO DAILY 03/29/23 04/20/25 04/19/25 History billion cell capsule multivitamin with minerals 1 tablet PO DAILY 03/29/23 04/20/25 04/19/25 History (Hair,Skin and Nails tablet) vitamin E 400 unit tablet 45 mg PO DAILY 03/29/23 04/20/25 04/19/25 History mecobalamin (vitamin B12) 1,000 1,000 mcg PO .MWF 05/02/24 04/20/25 04/17/25 History mcg chewable tablet Viviscal 1 cap PO BID 12/25/24 04/20/25 04/19/25 History calcium 500 mg PO BID 12/25/24 04/20/25 04/19/25 History celecoxib 200 mg capsule 200 mg PO Q24H PRN pain 12/25/24 04/10/25 Unknown History Allergies Allergy/AdvReac Type Severity Reaction Status Date / Time Sulfa (Sulfonamide Allergy Intermediate Hives Verified 04/20/25 08:00 Antibiotics) Review of Systems Review of Systems: All systems reviewed & are unremarkable except as noted in HPI and below PMFSH Past Medical History Medical History Abnormal thyroid function test on levothyroxine. was on biotin. normalized off biotin. 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 Surgical History Surgical History Knee joint replacement by other means H/O abdominal hysterectomy (~2005) Total knee replacement status (~2018) Social History Social History Smoking status: Never smoker Alcohol intake: never Substance use: never Substance use type: does not use Do You Feel Safe in your Home?: Yes Lack of Transportation: No Lack of Food: Never True Current Housing: I Have Housing Concerned About Future Housing: No Difficulty Paying Gas/Electric Bills: No Difficulty Paying for Meds: No Currently Unemployed: No Education: Trade/Vocational Certificate Difficulty w/ Childcare or Family Care: No Living arrangements: with family Spiritual care concerns: No Exam Narrative: GENERAL:Ill appearing, well-nourished, non-toxic, in no acute distress. HEAD: Normocephalic, atraumatic. NECK: Supple. No adenopathy, no masses. RESPIRATORY: Airway patent, respirations nonlabored. Clear to auscultation bilaterally, no rales, rhonchi, wheezing. CARDIOVASCULAR: Tachycardia without murmurs, rubs, or gallops. Peripheral pulses 2+ and equal bilaterally. -CVA tenderness ABDOMINAL: Soft, nontender, nondistended, no hepatosplenomegaly. Normoactive BS. MUSCULOSKELETAL: Moves all extremities. Strength/ROM intact without gross deformities. SKIN: Warm, dry, normal color. No rashes. NEURO: A&O X3. Speech clear. Cranial nerves II-XII intact. No ataxic movements. PSYCHIATRIC: Appropriate mood and affect. Normal interaction. Course Vital Signs Vital signs: Vital Signs Temperature 37.2 C 05/14/25 09:24 Pulse Rate 112 H 05/14/25 09:24 Respiratory Rate 16 05/14/25 09:24 Blood Pressure 97/85 L 05/14/25 09:24 Pulse Oximetry 94 05/14/25 09:24 Oxygen Delivery Room Air 05/14/25 09:24 Temperature 37.2 C 05/14/25 09:24 Pulse Rate 102 H 05/14/25 13:15 Respiratory Rate 24 H 05/14/25 13:15 Blood Pressure 130/69 05/14/25 12:53 Pulse Oximetry 93 05/14/25 13:15 Oxygen Delivery Room Air 05/14/25 09:24 MDM - Nausea/Vomiting/Diarrhea MDM Narrative Medical decision making narrative: Patient is a 80-year-old female who presents to the ER with complaints of abdominal pain, nausea, sweats and chills. She reports she was diagnosed with a urinary tract infection on Sunday and started taking antibiotics that evening. Patient reports last night she started experiencing these new symptoms. She endorses a history of Patiño's esophagitis, bilateral knee replacement, hysterectomy, and chronic back pain. Patient reports this is her 1st urinary tract infection. She denies any chest pain, shortness of breath, or new onset back pain. According to her medical records she has a history of blood clots and is not on a blood thinner. Labs Ordered: CBC, CMP, D-dimer, COVID/flu/RSV, UA, PTT, INR, lactic acid, CRP, blood culture Imaging Ordered: Chest x-ray Medications Ordered: Normal saline IV bolus, Zofran IV, Zofran ODT, Bentyl p.o., Keflex p.o. Results: Patient's CT scan indicates 1. No PE. 2. Mild interstitial pulmonary edema, pneumonitis, and/or interstitial lung disease. 3. Cardiomegaly. Diagnosis: gastroenteritis, nausea & vomiting related to drug Risks: HEART score: low risk HEART Score for Major Cardiac Events from [email or web address] on 05/14/2025 All calculations should be rechecked by clinician prior to use RESULT SUMMARY: 3 points Low Score (0-3 points) Risk of MACE of 0.9-1.7%. INPUTS: History ?> 1 = Moderately suspicious EKG ?> 0 = Normal Age ?> 2 = >=5 Risk factors ?> 0 = No known risk factors Initial troponin ?> 0 = <Normal limit Consults: CRITICAL CARE ADDENDUM: Indication: R/O sepsis Time type: intermittent I provided a total of 55 minutes of critical care excluding separately billable procedures. This includes time w/ EMS, initial bedside evaluation, reviewing old records, review of testing done while under my care, discussion w/ the family, nurses, consumer experience consultant and guiding the patient?s care while in the emergency department. Approximate time distribution: 15 minutes ? Initial evaluation, d/w involved parties, attempting to gather old records. 10 minutes ? Documenting medical record 10 minutes ? Review of results (EKGs, labs, imaging) 10 minutes ? Serial repeat bedside evaluation 10 minutes ? Discussing case with multiple providers Please see main chart for details. Excludes separately billable procedures. Patient Education/Shared MDM: Results of lab work and imaging shared with patient. She continues to denies any coughing and diarrhea, therefore there is little concern for pneumonia or C diff. She endorses improvement of symptoms following nausea medication administration. Her heart rate has come down to normal range after IV boluses. Patient believes her symptoms are due to the antibiotic she has been on and is request be changed to a different one. She will be started on Keflex instead and will be given her 1st dose here in the ER. Patient strongly advised to maintain hydration status upon discharge and follow-up with her PCP as soon as possible. She will also be given oral Zofran and dicyclomine here in the ER and received a prescription for those medications. She will be discharged home with a prescription for Keflex and advised to stop her Macrobid. Strict return precautions provided. Patient verbalized understanding and is in agreement with plan. Vital signs stable at time of discharge. All questions answered. Differential Diagnosis Differential diagnosis: Likely gastroenteritis and dehydration Lab Data Attestation: I reviewed the patient's lab results. 05/14/25 10:30 05/14/25 10:30 Labs: Lab Results 05/14/25 05/14/25 05/14/25 Range/Units 10:04 10:29 10:30 WBC 7.4 (4.5-10.0) K/mm3 RBC 5.02 (4.2-5.4) M/mm3 Hgb 14.0 (12.0-15.0) g/dL Hct 42.6 (37.0-47.0) % MCV 84.9 (80-100) fl MCH 27.9 (26-34) pg MCHC 32.9 (32-36) g/dl RDW 13.8 (11.5-14.5) % Plt Count 198 (150-375) k/mm3 MPV 10.7 H (7.4-10.4) fl Immature Gran % (Auto) 0.4 (0-0.5) % Neut % (Auto) 83.6 H (45.5-73.1) % Lymph % (Auto) 2.6 L (18.3-44.2) % [place] % (Auto) 6.6 (2.6-8.5) % Eos % (Auto) 6.5 H (0-4.4) % Baso % (Auto) 0.3 (0.2-1.2) % Lymph # (Auto) 0.19 L (0.9-3.2) K/mm3 [place] # (Auto) 0.5 (0.1-0.6) K/mm3 Eos # (Auto) 0.5 H (0-0.3) K/mm3 Baso # (Auto) 0.0 (0.0-0.1) K/mm3 Abs Immat Gran (auto) 0.03 (0.00-0.031) K/mm3 Absolute Neuts (auto) 6.2 (1.3-6.7) K/mm3 Absolute Nucleated RBC 0.000 (0.0-0.012) K/mm3 Nucleated RBC % 0.0 (0.0-0.2) % PT 13.4 (11.1-14.7) Seconds INR 1.0 APTT 36.4 (22.3-36.8) Seconds D-Dimer 1.16 H (<0.48) ug/mL Sodium 134 L (137-145) mmol/L Potassium 4.1 (3.4-5.0) mmol/L Chloride 99 (98-107) mmol/L Carbon Dioxide 29 (22-30) mmol/L Anion Gap 6 (4-12) mmol/L BUN 15 D (7-17) mg/dL Creatinine 0.87 (0.7-1.0) mg/dL Estim Creat Clear Calc 47 ml/min Estimated GFR > 60 (59 - ) Glucose 127 H (65-110) mg/dL Lactic Acid 1.4 (0.7-2.0) mmol/L Calcium 9.4 (8.4-10.2) mg/dL Total Bilirubin 0.5 (0.2-1.3) mg/dL AST 28 (14-36) U/L ALT 20 (6-35) U/L Alkaline Phosphatase 90 (38-126) U/L C-Reactive Protein 15.4 H (<1.0) mg/dL Total Protein 7.0 (6.3-8.2) g/dL Albumin 3.9 (3.5-5.1) g/dL Urine Color (Yellow) Urine Appearance (Clear) Urine pH (5.0-9.0) Ur Specific [place] (1.001-1.035) Urine Protein (Negative) mg/dL Urine Glucose (UA) (Negative) mg/dL Urine Ketones (Negative) mg/dL Ur Blood (Man) (Negative) Urine Nitrate (Negative) Urine Bilirubin (Negative) Urine Urobilinogen (<2.0) mg/dL Leukocyte Esterase Rfl (Negative) REGINO/UL Influenza A (RT-PCR) Negative (Negative) Influenza B (RT-PCR) Negative (Negative) RSV (RT-PCR) Negative (Negative) SARS-CoV-2 RNA (RT-PCR) Negative (Negative) 05/14/25 Range/Units 12:52 WBC (4.5-10.0) K/mm3 RBC (4.2-5.4) M/mm3 Hgb (12.0-15.0) g/dL Hct (37.0-47.0) % MCV (80-100) fl MCH (26-34) pg MCHC (32-36) g/dl RDW (11.5-14.5) % Plt Count (150-375) k/mm3 MPV (7.4-10.4) fl Immature Gran % (Auto) (0-0.5) % Neut % (Auto) (45.5-73.1) % Lymph % (Auto) (18.3-44.2) % [place] % (Auto) (2.6-8.5) % Eos % (Auto) (0-4.4) % Baso % (Auto) (0.2-1.2) % Lymph # (Auto) (0.9-3.2) K/mm3 [place] # (Auto) (0.1-0.6) K/mm3 Eos # (Auto) (0-0.3) K/mm3 Baso # (Auto) (0.0-0.1) K/mm3 Abs Immat Gran (auto) (0.00-0.031) K/mm3 Absolute Neuts (auto) (1.3-6.7) K/mm3 Absolute Nucleated RBC (0.0-0.012) K/mm3 Nucleated RBC % (0.0-0.2) % PT (11.1-14.7) Seconds INR APTT (22.3-36.8) Seconds D-Dimer (<0.48) ug/mL Sodium (137-145) mmol/L Potassium (3.4-5.0) mmol/L Chloride (98-107) mmol/L Carbon Dioxide (22-30) mmol/L Anion Gap (4-12) mmol/L BUN (7-17) mg/dL Creatinine (0.7-1.0) mg/dL Estim Creat Clear Calc ml/min Estimated GFR (59 - ) Glucose (65-110) mg/dL Lactic Acid (0.7-2.0) mmol/L Calcium (8.4-10.2) mg/dL Total Bilirubin (0.2-1.3) mg/dL AST (14-36) U/L ALT (6-35) U/L Alkaline Phosphatase (38-126) U/L C-Reactive Protein (<1.0) mg/dL Total Protein (6.3-8.2) g/dL Albumin (3.5-5.1) g/dL Urine Color Yellow (Yellow) Urine Appearance Clear (Clear) Urine pH 5.5 (5.0-9.0) Ur Specific [place] > 1.045 H (1.001-1.035) Urine Protein Negative (Negative) mg/dL Urine Glucose (UA) Negative (Negative) mg/dL Urine Ketones Trace H (Negative) mg/dL Ur Blood (Man) Negative (Negative) Urine Nitrate Negative (Negative) Urine Bilirubin Negative (Negative) Urine Urobilinogen 0.2 (<2.0) mg/dL Leukocyte Esterase Rfl Negative (Negative) REGINO/UL Influenza A (RT-PCR) (Negative) Influenza B (RT-PCR) (Negative) RSV (RT-PCR) (Negative) SARS-CoV-2 RNA (RT-PCR) (Negative) Imaging Data Attestation: I personally reviewed and interpreted this imaging study as follows: Radiologist's impression: Impressions Chest X-Ray 05/14/25 10:06 IMPRESSION: 1. Subtle pneumonitis or airspace disease within left lung base. Chest CTA 05/14/25 11:45 IMPRESSION: 1. No PE. 2. Mild interstitial pulmonary edema, pneumonitis, and/or interstitial lung disease. 3. Cardiomegaly. Discharge Plan Discharge Clinical Impression: Gastroenteritis, Dehydration, Drug-induced nausea and vomiting, History of urinary tract infection Patient Disposition: Home Condition: Stable Instructions: Antibiotic Form Additional Instructions: Please return to the ER with any worsening symptoms. Follow-up with primary care provider as soon as possible for re-evaluation. Take all medications as prescribed, including regularly scheduled medications. Complete your full dose of antibiotics. You may take dicyclomine as needed for abdominal pain/discomfort. Please take Zofran as needed for nausea/vomiting. Remember to drink lots of water. Patient Language: Finnish Prescriptions: New dicyclomine 20 mg tablet 20 mg PO TID Qty: 9 0RF cephalexin 500 mg capsule 500 mg PO Q8H 5 Days Qty: 15 0RF ondansetron 4 mg tablet,disintegrating 4 mg PO Q8H Qty: 30 0RF No Action calcium 500 mg tablet 500 mg PO BID ondansetron 4 mg tablet,disintegrating 4 mg PO Q8H PRN (Reason: nausea and vomiting) Qty: 30 3RF Patient Comments: HAS NEVER HAD TO TAKE aspirin [Yari Low Dose Aspirin] 81 mg tablet,delayed release (DR/EC) 81 mg PO DAILY cholecalciferol (vitamin D3) 50 mcg (2,000 unit) capsule 50 mcg PO DAILY docusate sodium 50 mg capsule 100 mg PO BID magnesium 250 mg tablet 250 mg PO DAILY celecoxib 200 mg capsule 200 mg PO Q24H PRN (Reason: pain) Viviscal 1 cap PO BID famotidine 20 mg tablet 20 mg PO DAILY Qty: 60 2RF vitamin E 400 unit Tablet 45 mg PO DAILY Hair,Skin and Nails Tablet 1 tablet PO DAILY lactobacillus combination no.8 3 billion cell Capsule 1 cell PO DAILY Prevagen 1 tablet PO DAILY mecobalamin (vitamin B12) 1,000 mcg tablet,chewable 1,000 mcg PO .MWF omeprazole 40 mg capsule,delayed release(DR/EC) See Rx Instructions .ROUTE .COMPLEX Qty: 90 2RF Dose Instruction: TAKE 1 CAPSULE BY MOUTH EVERY DAY Rx Instructions: TAKE 1 CAPSULE BY MOUTH EVERY DAY nitrofurantoin monohyd/m-cryst 100 mg capsule 100 mg PO Q12H 5 Days Qty: 10 0RF Rx Instructions: must administer with a meal/food Follow-up/Referrals: Lashae Patel MD [Primary Care Provider, [facility]] Time of Disposition: 15:26
[2025-05-14] MEDS: ONDANSETRON INJ 4 MG/2 ML VIAL IV PUSH (10:40)
[2025-05-14 10:42] LABS: Hematocrit 42.6 % (37.0-47.0); Hemoglobin 14.0 g/dL (12.0-15.0); Immature Granulocyte Percent A 0.4 % (0-0.5); Lymphocytes Absolute Auto 0.19 K/mm3 (0.9-3.2); Mean Corpuscular HGB Conc 32.9 g/dl (32-36); Mean Corpuscular Hemoglobin 27.9 pg (26-34); Mean Corpuscular Volume 84.9 fl (80-100); Nucleated Red Blood Cells Absolute Auto 0.000 K/mm3 (0.0-0.012); Nucleated Red Blood Cells Perc 0.0 % (0.0-0.2); Platelet Count Result 198 k/mm3 (150-375); Red Blood Count 5.02 M/mm3 (4.2-5.4); White Blood Count 7.4 K/mm3 (4.5-10.0)
[2025-05-14 10:48] LABS: Influenza A QL RT-PCR Negative (Negative); Influenza B QL RT-PCR Negative (Negative); RSV RNA, RT-PCR Negative (Negative); SARS-CoV-2 RNA PCR Negative (Negative)
[2025-05-14 10:55] LABS: INR 1.0; Prothrombin Time 13.4 Seconds (11.1-14.7)
[2025-05-14 10:56] LABS: Partial Thromboplastin Time 36.4 Seconds (22.3-36.8)
[2025-05-14 10:56] LABS: Alanine Aminotransferase 20 U/L (6-35); Albumin Level 3.9 g/dL (3.5-5.1); Alkaline Phosphatase 90 U/L (38-126); Anion Gap 6 mmol/L (4-12); Aspartate Amino Transferase 28 U/L (14-36); Bilirubin,Total 0.5 mg/dL (0.2-1.3); Blood Urea Nitrogen 15 mg/dL (7-17); Calcium 9.4 mg/dL (8.4-10.2); Carbon Dioxide 29 mmol/L (22-30); Chloride 99 mmol/L (98-107); Estimated CRCL calculation 47 ml/min; Estimated Glomerular Filt Rate > 60; Glucose 127 mg/dL (65-110); Potassium 4.1 mmol/L (3.4-5.0); Sodium 134 mmol/L (137-145); Total Protein 7.0 g/dL (6.3-8.2)
[2025-05-14 11:08] LABS: CRP 15.4 mg/dL (<1.0)
[2025-05-14] MEDS: SODIUM CHLORIDE 0.9% IV 1,000 ML 999 ML IV CONT ×2 (11:22→14:00)
[2025-05-14 12:53] VITALS: BP 130/69; PULSE 97; RESP 16; O2SAT 99
[2025-05-14 13:00] VITALS: PULSE 104; RESP 20; O2SAT 93
[2025-05-14 13:02] LABS: Add Urine Microscopic? NO; Appearance Urine Clear (Clear); Glucose Urine UA Negative (Negative); Leukocyte Esterase Ur Negative LEU/UL (Negative); Nitrate Urine Negative (Negative); Specific Grav Ur > 1.045 (1.001-1.035)
[2025-05-14 13:15] VITALS: PULSE 102; RESP 24; O2SAT 93
[2025-05-14] MEDS: ONDANSETRON HCL ODT 4 MG TABLET PO (15:14)
[2025-05-14] MEDS: CEPHALEXIN 500 MG CAPSULE PO (15:14)
[2025-05-14] MEDS: DICYCLOMINE HCL 10 MG CAPSULE 20 MG PO (15:14)
[2025-05-14 15:23] VITALS: PULSE 89; RESP 16; O2SAT 97
[2025-05-14] MEDS: SODIUM CHLORIDE 0.9% IV 500 ML 999 ML IV CONT (15:25)
[2025-05-14 15:56] VITALS: BP 126/61; PULSE 88; RESP 18; O2SAT 98
== END 2025-05-14 16:14 | disposition home or self-care (01) ==
PROVIDERS: Emergency Provider Registered Nurse; PCP Family Medicine
DX: K52.9 Noninfective gastroenteritis and colitis, unspecified (principal); N39.0 Urinary tract infection, site not specified; E86.0 Dehydration; R11.2 Nausea with vomiting, unspecified; T36.95XA Adverse effect of unspecified systemic antibiotic, initial encounter; Z20.822 Contact with and (suspected) exposure to COVID-19; K22.70 Barrett's esophagus without dysplasia; Z96.659 Presence of unspecified artificial knee joint; Z86.718 Personal history of other venous thrombosis and embolism; Z90.710 Acquired absence of both cervix and uterus; I51.7 Cardiomegaly; J81.1 Chronic pulmonary edema; R00.0 Tachycardia, unspecified; R94.31 Abnormal electrocardiogram [ECG] [EKG]; Z79.82 Long term (current) use of aspirin
CPT/HCPCS: 36415; 71046; 71275; 80053; 81003; 83605; 85025; 85380; 85610; 85730; 86140; 87040; 87637; 93005; 96361; 96374; 99284; A9270; J2405; J7030; Q9967

== ENCOUNTER 2025-07-02 10:09 | Outpatient (CLI) | payer MEDICARE, BC, SELFPAY ==
--- OUTSIDE RECORDS SUMMARY | 2010-04-14 07:15 | XMS_ITS | Continuity of Care Document ---
Author Organization [facility] Address [address] [place] [address] [address] [place] [address] Phone Care Team Providers Care Associate Merchandiser Name Role Phone Elizabeth Herring Unavailable Unavailable Procedures Procedure Date Eye Exam Established Pt Office/outpatient Visit, Est Advance Directives Directive Yes / No Effective Date File Name No Information Encounters Encounter Description Practice Location Reason(s) For Visit Diagnoses Date Provider Providers Copied on Encounter [facility], [address] [place] [address] [address], [place], [place], [id number], tel:[phone] [facility] [place] No Information 9-201 0 Nevaeh Johnson. [address] [facility] [address] [place] , [address], [place], [place], [facility], . tel:[phone] Office/outpat ient Visit, Est [facility], [address] [place] [address] [address], [place], [place], [id number], tel:[phone] [facility] [place] No Information 7-200 7 Nevaeh Louise [address] [facility] , [address], [place], [address], [place]. tel:[phone] Family History Family Member Type Diagnosis Age At Onset No Information Payers Payer name Insurance type Covered libertarian ID Authoriza tion(s) No Information Social History Type Description Quantity Date Captured Comments Sex Female Smoking Status No Information Chief Complaint And Reason For Visit No Information Reason For Referral Reason For Referral No Information History Of Present Illness Encounter Date Complaint History Of Prese nt Illness No Information Functional Status Date Functional Assessmen t No Information Instructions Date Instruction Additional Infor mation No Information Assessments Type Assessment Date No Information Patient Care Teams Name Effective Dates (start - stop) Status Members No Information
--- OUTSIDE RECORDS SUMMARY | 2025-06-04 07:15 | XMS_ITS | Continuity of Care Document ---
Author Organization [facility] Address [address] [place] [phone] Phone Care Team Providers Care Manager Digital Ad Operations Name Role Phone Mary Ellen CRUZ, [facility], Dale Unavailable Unavailab le Procedures Procedure Date TTE W/DOPPLER, COMPLETE Results Test Name Date and Time Measure Units Reference Range Abnormal Flag Status Comments Panel Description: Not Available Final [{Url}] <Url iRemMajorVer aureliano=1 iRemMinorVer aureliano=5.9.4 seq_no=8146 [id number] template_nam e=PacsEx>< Path><![CDAT A[[email or web address] om/?GnZNArhq mvRAnulMAlTd vqLHKN1yBUqS ePF7fc6OF0B+ X/op4zXewdBy Vec/1Uf0O4qz vpmXDbPL6qIX DbDWmguEusY/ fP5w2odqHv92 3MfB7yT9ovmx cfPs+n7CYZVN ]]></Path></ Url> Final Panel Description: Not Available Final [{Url}] <Url iRemMajorVer aureliano=1 iRemMinorVer aureliano=5.9.4 seq_no=[id number] template_nam e=PacsEx>< Path><![CDAT A[[email or web address]://ww [email or web address] om/?GnZNArhq mvRAnulMAlTd awDXTN5tMFlA cXH7ef1OZ8J+ X/cm7rFpkhFi Vec/4Tj6X7pd uxcZVsPQ7lKM DbDWmguEusY/ sF7t6otsBj24 3SfZ2aG7tsmk cfPs+h1IRSQH ]]></Path></ Url> Final Panel Description: Not Available Final [{Url}] <Url iRemMajorVer aureliano=1 iRemMinorVer aureliano=5.9.4 seq_no=[id number] template_nam e=PacsEx>< Path><![CDAT A[[email or web address]://ww [email or web address] om/?GnZNArhq mvRAnulMAlTd ofDYHY3vCZoG eZD2gx8HK5D+ X/ho5kJnkqZw Vec/9Ew2D4yp whtORgXN0hDQ DbDWmguEusY/ vA7f2yvqIr50 1XqP5vF4zlnd cfPs+l8PNBQE ]]></Path></ Url> Final Panel Description: ECHO Unknown Image ECHO 1 Advance Directives Directive Yes / No Effective Date File Name No Information Encounters Encounter Description Practice Location Reason(s) For Visit Diagnoses Date Provider Providers Copied on Encounter [facility], [address] [place] [address], [id number], tel:[phone] [facility] [place] No Information Mary Ellen [facility]. [address] [place] [address], [id number], . tel:[phone] Referring Provider: Lashae Patel, [address] [place] [address] [address], [place], [address]. tel:[phone] Family History Family Member Type Diagnosis Age At Onset No Information Payers Payer name Insurance type Covered green party ID Authoriza tion(s) [place] MED[place]ARE CI [id number] [facility] CI [id number] Social History Type Description Quantity Date Captured [...]
[2025-07-02 13:06] LABS: Iron 129 ug/dL (37-170)
[2025-07-02 13:44] LABS: Percent Iron Saturation 46 % (20-50)
[2025-07-02 14:09] LABS: Ferritin 83.70 ng/mL (11.1-264)
--- OUTSIDE RECORDS SUMMARY | 2025-07-02 18:29 | XMS_ITS | Clinical Summary ---
Author Organization [facility] Address [address] [place] [address] Care Team Providers Care Lever Operator Name Role Phone Stew Phan MD Unavailable [phone] Lashae Patel MD Primary Care Provider [phone] Source Comments [facility],non-owned Affiliates and Associated Physician Practices is amultiple site organization consisting of ambulatory clinics and hospital sitesin [place], [place], [place] and [place]. This disclosure is being madepursuant to the Care Everywhere program and may not contain all information available regarding this patient. Last updated 18.[facility] Allergies Active Allergy Reactions Criticality Noted Date [...] PO) Take 120 mg by mouth Active [place]-3 Krill Oil 500 MG Active Biotin 5000 [...] Encounters Date Type Department Care Team Description 05/29/2025 Telephone [facility] [address] [facility], [address] [address] Clark Harrell IV, MD Appointment 05/19/2025 1:15 PM CDT Office Visit [facility] [address] [facility], [address] [address] Jessica Blood, PA-C Primary localized osteoarthritis of right hip (Primary Dx); Right hip pain 05/19/2025 1:05 PM CDT Ancillary Procedure [facility] - Radiology [address] [place] [address] Jessica Blood PA-C Right hip pain from Last 3 Months Family History Medical [...] 75+ series) 2022 COVID-19 VACCINE (1 - 2023- season) 2025 INFLUENZA VACCINE (#1) 2025 , 06/06/2017, 06/02/2015, Additional history exists DEPRESSION SCREENING Completed 05/19/2025, 07/08/20 HEPATITIS B VACCINE Aged Out No longe [...] [employer] Implanted Type Area Hat And Cap Parts Cutter Hand Device Identifier Shelf Expiration Date Model / Serial / Lot Cmnt Bone Djo Srg Cblt 40gm Hvisc Strl Implanted:Qty: 1 on 10/30/2019 by Stew Phan MD at [facility] Right: Knee [employer] 06/25/2020 600-15-000 / / [id number] Tray Tib 67mm Kn Cocr I Beam Implanted:Qty: 1 on 10/30/2019 by Stew Phan MD at [facility] Right: Knee [employer] 07/04/2029 [id number] / / [id number] Cmpnt Fem Kn Rt Cr Cmnt Prm Vngrd Intlk Implanted:Qty: 1 on 10/30/2019 by Stew Phan MD at [facility] Right: Knee [employer] 07/03/2029 [id number] / / [id number] Cmpnt Ptlr 28mm 1 Pg Wire Ascnt Arcm Kn Implanted:Qty: 1 on 10/30/2019 by Stew Phan MD at [facility] Right: Knee [employer] 09/20/2024 [id number] / / [id number] Brng [id number] Vngrd Arcm Kn Ant Stab Implanted:Qty: 1 on 10/30/2019 by Stew Phan MD at [facility] Right: Knee [employer] 10/02/2024 [id number] / / [id number] Brng [id number] Vngrd Arcm Kn Ant Stab Implanted:Qty: 1 on 05/28/2024 by Stew Phan MD at [facility] Left: Knee [employer] 07/10/2028 [id number] / / [id number] Cmnt Bone Plc R 40gm Grn Implanted:Qty: 1 on 05/28/2024 by Stew Phan MD at [facility] Left: Knee [employer] 08/26/2026 [id number] / / [id number] Tray Tib 71mm Kn Cocr I Beam Implanted:Qty: 1 on 05/28/2024 by Stew Phan MD at [facility] Left: Knee [employer] 12/01/2032 [id number] / / [id number] Cmpnt Ptlr Std 28mm 3 Pg Kn Ser A Implanted:Qty: 1 on 05/28/2024 by Stew Phan MD at [facility] Left: Knee [employer] [id number] / / [id number] Cmpnt Fem Kn Lt Cr Cmnt Prm Vngrd Intlk Implanted:Qty: 1 on 05/28/2024 by Stew Phan MD at [facility] Left: Knee [employer] 03/20/2034 [id number] / / [id number] Procedures Procedure Name Priority Date/Time Associated Diagnosis Comments XR HIP RIGHT 2VW OR MORE Routine 05/19/2025 1:10 PM CDT Right hip pain from Last 3 Months Results * XR Hip Right 2Vw or More (05/19/2025 1:10 PM CDT) Narrative [facility] [address] - 05/19/2025 1:10 PM CDT Please see progress note in Epic for results. us Jessica Blood PA-C DIAGNOSTIC IMAGING ORDERAB LES Final Result [facility] [address] from Last 3 Months Additional Health Concerns Active Problems Noted Date Diagnosed Date Autogenerated Problem 03/24/2025 Insurance MEDICARE [facility] SELF PAY NO INSURANCE Member Subscriber Plan / Payer (Ef fective for All Dates) Name:Magan Martureliseth Breaux Member ID:Not on file Relation to Subscriber:Not on file Name:MAGAN MARTURELISETH Breaux Subscriber ID:Not on file (Home) Address: [address] [address] Payer ID:Not on file Group ID:Not on file Type:Self Pay Address: [place], [place] MEDICARE MEDICARE MEDICARE * Guarantor: CATHY MART Account Type Relation to Patient Date of Phone Billing Address Personal/Family Spouse Advance Directives * Full Code (Latest Code Status on File) Date Activated Date Inactivated Comments 05/28/2024 3:42 PM 05/29/2024 3:28 PM * Full Code Date Activated Date Inactivated Comments 10/30/2019 10:51 AM 11/02/2019 1:53 PM Care Teams Lever Operator Relationship Specialty Start Date End Date Lashae Patel MD [address] [place] [address] PCP - General Family Medicine 04/10/24 [place] [id number] [address] [facility] [address] [place] [address] Orthopedic Surgery 07/22/19
--- OUTSIDE RECORDS SUMMARY | 2025-07-02 18:29 | XMS_ITS | Data Portability ---
Author Organization [facility], Tiona Address [address] [place] [address] [place] [address] Care Team Providers Care Solar Sales Representative Name Role Phone TOMASZ LIRA Primary Care Provider Assessment No assessment recorded. Plan of Treatment Reminders Order Date Submit Date Provider Last Modified By Organization Details Last Modified Time Details Appointments None recorded. Lab urinalysis , dipstick [address], [address], [address], [place], [address], 14:53:31 Referral None recorded. Procedures None recorded. Surgeries None recorded. Imaging CT, abdomen + pelvis, w/ contrast 2021 022 [facility], [address], [place], [address], 10:04:12 Medication Orders None recorded. Patient TargetsNo targets recorded. Patient InstructionsNo instructions recorded. Reason for Referral None Reported. Results Created Date Observation Date Name Description Value Unit Range Abnormal Flag Note LastModifiedBy Organization Detail LastModifiedTime 10/05/1910/05/2021 URINA LYSIS , WITH MICRO SCOPI C color, urine Yellow colorl ess, light yellow , yellow , dark yellow , straw, damari Not Available [facility] (Lab) [address], [place], [address], 10/09/2021 09:19:00 10/05/19 22 10/05/2021 URINA LYSIS , WITH MICRO SCOPI C clarity, urine Clear Not Available [facility] (Lab) [address] [facility], [place], [address], 10/09/2021 09:19:00 10/05/19 22 10/05/2021 URINA LYSIS , WITH MICRO SCOPI C glucose, urine Negati ve mg/dL negati ve Not Available [facility] (Lab) [address] [facility] [facility], [place], [address], 10/09/2021 09:19:00 10/05/19 22 10/05/2021 URINA LYSIS , WITH MICRO SCOPI C bilirubin, urine Negati ve mg/dL negati ve Not Available [facility] (Lab) [address] [facility], [place], [address], 10/09/2021 09:19:00 10/05/19 22 10/05/2021 URINA LYSIS , WITH MICRO SCOPI C ketones, urine Negati ve mg/dL negati ve Not Available [facility] (Lab) [address] [facility], [place], [address], 10/09/2021 09:19:00 10/05/19 22 10/05/2021 URINA LYSIS , WITH MICRO SCOPI C pH, urine 6.0 . 5.0-9. 0 Not Available [facility] (Lab) [address] [place], [address], 10/09/2021 09:19:00 10/05/19 22 10/05/2021 URINA LYSIS , WITH MICRO SCOPI C specific gravity, urine 1.018 . 1.001- 1.035 Not Available [facility] (Lab) [address] [place], [address], 10/09/2021 09:19:00 10/05/19 22 10/05/2021 URINA LYSIS , WITH MICRO SCOPI C blood, urine Negati ve negati ve Ascor bic Acid is prese nt in the urine which is known to cause false negat sabine resul ts for blood . Not Available [facility] (Lab) [address] [facility], [place], [address], 10/09/2021 09:19:00 10/05/19 22 10/05/2021 URINA LYSIS , WITH MICRO SCOPI C protein, UA Negati ve mg/dL negati ve Not Available [facility] (Lab) [address] [facility], [place], [address], 10/09/2021 09:19:00 10/05/19 22 10/05/2021 URINA LYSIS , WITH MICRO SCOPI C urobilinogen , urine <2.0 mg/dL <2.0 Not Available [facility] (Lab) [address] [facility], [place], [address], 10/09/2021 09:19:00 10/05/19 22 10/05/2021 URINA LYSIS , WITH MICRO SCOPI C nitrite, urine Negati ve negati ve Not Available [facility] (Lab) [address] [facility], [place], [address], 10/09/2021 09:19:00 10/05/19 22 10/05/2021 URINA LYSIS , WITH MICRO SCOPI C leukocyte esterase, urine Negati ve marilu/u L negati ve Not Available [facility] (Lab) [address] [facility], [place], [address], 10/09/2021 09:19:00 10/05/19 22 10/05/2021 URINA LYSIS , WITH MICRO SCOPI C WBC, urine 0-5 /hpf none, 0-5 Not Available [facility] (Lab) [address] [facility], [place], [address], 10/09/2021 09:19:00 10/05/19 22 10/05/2021 URINA LYSIS , WITH MICRO SCOPI C RBC, urine 0-2 /hpf none, 0-2 Not Available [facility] (Lab) [address] [facility], [place], [address], 10/09/2021 09:19:00 10/05/19 22 10/05/2021 URINA LYSIS , WITH MICRO SCOPI C bacteria, urine None /hpf none Not Available [facility] (Lab) [address] [facility], [place], [address], 10/09/2021 09:19:00 10/05/19 22 10/05/2021 URINA LYSIS , WITH MICRO SCOPI C squamous epithelial cells, urine Trace /hpf none abnormal Not Available [facility] (Lab) [address] [facility], [place], [address], 10/09/2021 09:19:00 10/05/19 22 10/05/2021 URINA LYSIS , WITH MICRO SCOPI C mucus, urine Few /hpf none, trace, few Not Available [facility] (Lab) [address] [facility], [place], [address], 10/09/2021 09:19:00 10/05/19 22 10/05/2021 CULTU RE: URINE result report SEE RESULT S BELOW Test: Cultu re: Urine Speci men Sourc e: Urine Voide d Speci men Type: Urine Speci men Date: 022 5:31 PM Resul t Date: 2021 8:16 AM Resul t Statu s: Final resul t Abnor mal: No Resul ting Lab: [facility] [address] [facility] [address] Tel: CULTU RE ----- ----- ----- --- No growt h in 1 day (dete ction level of 10,00 0 colon ies / ml.) Not Available [facility] (Lab) [address] [facility], [place], [address], 10/09/2021 09:19:01 10/05/19 22 10/05/2021 urina lysis , dipst ick Leukocytes trace Not Available Raghu lynne [address], [place], [address], 10/05/2021 14:39:12 10/05/19 22 10/05/2021 urina lysis , dipst ick Nitrite neg Not Available T[facility] [address], [place], [address], 10/05/2021 14:39:12 10/05/19 22 10/05/2021 urina lysis , dipst ick Urobilinogen neg Not Available [facility] tiago [address], [place], [address], 10/05/2021 14:39:12 10/05/19 22 10/05/2021 urina lysis , dipst ick Protein trace Not Available Tiona [address], [place], [address], 10/05/2021 14:39:12 10/05/19 22 10/05/2021 urina lysis , dipst ick pH 5 Not Available Tiona [address], [place], [address], 10/05/2021 14:39:12 10/05/19 22 10/05/2021 urina lysis , dipst ick Blood trace Not Available [facility] [address], [place], [address], 10/05/2021 14:39:12 10/05/19 22 10/05/2021 urina lysis , dipst ick Specific [place] 1.010 Not Available [facility] [address], [place], [address], 10/05/2021 14:39:12 10/05/19 22 10/05/2021 urina lysis , dipst ick Ketone neg Not Available T[facility] [address], [place], [address], 10/05/2021 14:39:12 10/05/19 22 10/05/2021 urina lysis , dipst ick Bilirubin neg Not Available Nasreennarinder vizcaino [address], [place], [address], 10/05/2021 14:39:12 10/05/19 22 10/05/2021 urina lysis , dipst ick Glucose neg Not Available [facility] [address], [place], [address], 10/05/2021 14:39:12 10/05/19 22 10/05/2021 urina lysis , dipst ick Appearance clear Not Available [facility] [address], [place], [address], 10/05/2021 14:39:12 10/05/19 22 10/05/2021 urina lysis , dipst ick Color yellow Not Available [facility] [address], [place], [address], 10/05/2021 14:39:12 10/21/[address], abdom en + pelvi s, w/ contr ast No observ ation record ed. [facility] [address], [place], [address], 10/26/2021 18:46:52 Result Notes None recorded. Problems Name Problem SNOMED Code Status Onset Date Resolution Date Notes Provider Name and Address Organization Details Recorded Time Overweig 472057520 Completed 201010/22/2012 Overweig ;Recor ded Elsewher e: No Locat ion: [facility] S ource: EHR Classroom Technology Coach arelis: N Practi ce ID: 0001 Rocco lable Time: 10:30:00 AM Not Available [facility] 0 21:12:48 Female genital organ symptoms 580779544 Completed 201010/22/2012 Unspecif ied symptom associat ed with female genital organs;R ecorded Elsewher e: No Locat ion: [facility] S ource: EHR Classroom Technology Coach arelis: N Practi ce ID: 0001 Rocco lable Time: 10:30:00 AM Not Available [facility] 0 21:12:48 Leukocyt osis 275184309 Completed 201210/04/2021 LEUKOCYT OSIS NOS;Prac radha ID: 0001 Nisa Fabian [facility] 2 17:40:49 Screenin g for malignan t neoplasm of rectum Completed 201210/04/2021 Screenin g for malignan t neoplasm s of the rectum;P tovatice ID: 0001 Nisa Fabian [facility] 2 17:41:10 Screenin g for malignan t neoplasm of cervix Completed 201210/22/2012 Screenin g for malignan t neoplasm s of the cervix;R ecorded Elsewher e: No Locat ion: [facility] S ource: EHR Classroom Technology Coach arelis: N Practi ce ID: 0001 Rocco lable Time: 11:00:00 AM Nisa Fabian [facility] 2 17:40:54 Speciali zed medical examinat ion Completed 201210/22/2012 Gynecolo gical Examinat ion;Calvin rded Elsewher e: No Locat ion: [facility] S ource: EHR Classroom Technology Coach arelis: N Practi ce ID: 0001 Rocco lable Time: 11:00:00 AM Nisa Fabian [facility] 2 17:41:16 Adult health examinat ion Completed 201210/22/2012 Routine Medical Exam;Rec orded Elsewher e: No Locat ion: [facility] S ource: EHR Classroom Technology Coach arelis: N Practi ce ID: 0001 Rocco lable Time: 10:45:00 AM Nisa Fabian [facility] 2 17:40:45 Vaginiti s and vulvovag initis Completed 201210/04/2021 Vaginiti s and vulvovag initis, unspecif ied;Prac radha ID: 0001 Nisa Fabian [facility] 2 17:41:23 Neoplasm of uncertai n behavior of female genital organ [id number] Completed 201210/04/2021 Lesion Uncertai n Genital; Practice ID: 0001 Nisa hollingsworth [facility] 2 17:40:53 Urinary tract infectio us disease [id number] Completed 201210/04/2021 Urinary tract infectio n, site not specifie d;Practi ce ID: 0001 Nisa Fabian [facility] 17:41:20 Menopaus al symptom [id number] Completed 201310/04/2021 Menopaus al or female climacte bernie states;P ractice ID: 0001 Nisa Fabian [facility] 17:40:51 Adult health examinat ion Completed 201410/04/2021 Routine general medical examinat ion at a health care facility ;Practic e ID: 0001 Nisa Fabian [facility] 17:40:45 Speciali zed medical examinat ion Completed 201410/04/2021 Routine gynecolo gical examinat ion;Prac radha ID: 0001 Nisa Fabian [facility] 17:41:16 Screenin g for malignan t neoplasm of cervix Completed 201410/04/2021 Pap Smear;Pr actice ID: 0001 Nisa Fabian [facility] 17:40:[address] Concept Completed 201510/04/2021 Well woman check w/o abnormal finding; Recorded Elsewher e: No Locat ion: Sidney vizcaino [facility] S ource: EHR Classroom Technology Coach arelis: N Practi ce ID: 0001 Rocco lable Time: 10:00:00 AM Nisa Fabian [facility] 2 17:41:14 Blood leukocyt e number above referenc e range [id number] Completed 201610/04/2021 Elevated white blood cell count, unspecif ied;Calvin rded Elsewher e: No Locat ion: [facility] S ource: EHR Classroom Technology Coach arelis: N Ramseyti ce ID: 0001 Rocco lable Time: 11:15:00 AM Nisa Fabian [facility] 2 17:40:48 Abdomina l pain [id number] Completed 201710/04/2021 Abdomina l pain;Rec orded Elsewher e: No Locat ion: [facility] S ource: EHR Classroom Technology Coach arelis: N Ramseyti ce ID: 0001 Rocco lable Time: 11:30:00 AM Nisa Fbaian [facility] 2 17:40:[address] Concept Completed 201710/04/2021 Encntr for general adult medical exam w/o abnormal findings ;Recorde d Elsewher e: No Locat ion: [facility] S ource: EHR Classroom Technology Coach arelis: N Ramseyti ce ID: 0001 Rocco lable Time: 11:30:00 AM Nisa Fabian [facility] 2 17:41:12 Vaginal vault smear result - finding [id number] Completed 201710/04/2021 Unsatisf actory cytologi c smear of vagina;R ecorded Elsewher e: No Locat ion: [facility] S ource: EHR Classroom Technology Coach arelis: N Ramseyti ce ID: 0001 Rocco lable Time: 10:30:00 AM Nisa Fabian [facility] 2 17:41:21 Cervicov aginal cytology specimen unsatisf actory [id number] Completed 201710/04/2021 Unsatisf actory cytologi c smear of cervix;P ractice ID: 0001 Nisa Fabian [facility] 2 17:40:46 Problem Notes None recorded. Procedures Surgical History Date Name Laterality Status Provider Name and Address Organization Details Recorded Time 1 Most Recent Bone Density completed [facility] 10/05/2021 14:38:01 8 Date of Last Mammogram completed [facility] 10/05/2021 14:37:16 7 Date of Last Colonoscopy completed [facility] 10/05/2021 14:37:49 3 biopsy of vulva completed [facility] 10/05/2021 14:05:17 Imaging Results None recorded. Procedure Notes None recorded. Medical Equipment None Reported. Allergies Allergen ID Allergen Name Allergen Category Reaction Reaction Severity Criticality Documentation Date Start Date Code Code System Note Provider Name and Address Organization Details Recorded Time 53264 sulfameth oxazole medicatio n Not available Not available Not available 08/13/2020 00681 RxNorm Comme nt: [facility]; Not Available [facility] 0 14:14:55 44938 trimethop rim medicatio n Not available Not available Not available 08/13/2020 86062 RxNorm Comme nt: Locat [facility]; Not Available [facility] 0 14:14:55 Medications Name Sig Start Date Stop Date Status Note LastModified by Organization Details LastModified Time amoxicill in 500 mg capsule 10/05 completed Not Available Not Available Not Available biotin 5 mg capsule 04/26 completed Prescrib ed Elsewher e: Yes Loca tion: [facility] M odify By: farida dominiqueuntbay DateTime : 09/24/19 13 11:00:00 AM Not [...] Sidney vizcaino [facility] odify By: chacha Vizcaino ncountbay DateTime : 12/22/19 17 04:43:16 PM Not [...] Hospital odify By: chacha calderon DateTime : 04/26/20 15 01:00:00 PM [...] mcg (50,000 unit) capsule take 1 capsule (62513EQ ITS) by oral route every week 11/19 [...] Prescrib ed Elsewher e: Yes [facility] By: farida calderon DateTime : 04/26/20 15 01:00:00 PM Not Available Not Available Not Available Vitamin C 500 mg capsule,e xtended release 03/23 completed Prescrib ed Elsewher e: Yes [facility] By: sandro wade DateTime : 09/24/19 [...] AM Not Available Not Available Not Available Goldsmith-3 active Prescrib ed Elsewher e: Yes Loca tion: Sidney vizcaino [facility] odify By: chacha dominiqueunter DateTime : 04/30/20 18 09:30:00 AM Not [...] Prescrib ed Elsewher e: Yes Loca tion: [facility] odify By: sandro wade DateTime : 09/24/19 13 11:00:00 AM Not Available Not Available Not Available Probiotic 10 billion cell capsule active Prescrib ed Elsewher e: Yes Loca tion: [facility] carrillo [facility] odify By: chacha calderon DateTime : 04/30/20 18 09:30:00 AM Not Available Not Available Not Available biotin 1 mg capsule active Prescrib ed Elsewher e: Yes Loca tion: [facility] carrillo [facility] odify By: chacha Vizcaino ncounter DateTime : 04/30/20 18 09:30:00 AM Not Available Not Available Not Available ginkgo biloba leaf extract 60 mg tablet active Prescrib ed Elsewher e: Yes Loca tion: [facility] odify By: farida calderon DateTime : 04/26/20 15 01:00:00 PM Not Available Not Available Not Available Vitals Date Recorded Systolic And Diastolic Provider Name and Address Organization Details Last Updated DateTime 10/05/2021 132/78 mm[Hg] Shani Oneill, [facility]- [address], [place], [address], [facility] 10/05/2021 14:53:25 Date Recorded Body height Body mass index (BMI) Body weight Provider Name and Address Organization Details Last Updated DateTime 10/05/2021 160.02 cm 31.2 kg/m2 03304.26 g Nisa Fabian [facility] 10/05/2021 14:33:50 Social History Question Answer Notes LastModified by Organizat ion Details LastModified Time Tobacco Smoking Status Never Smoker Nisa Fabian [facility] 10/04/2021 17:42:31 Are You Blind Or Do You Have [...] Yes Information not available 10/04/2021 Do You Use Sunscreen Routinely? Yes Information not available 10/04/2021 Do You Have Difficulty Walking Or Climbing Stairs? No Information not available 10/04/2021 Sex: Unknown Functional Status Question Answer Note LastModified by Organizat ion Details LastModified Time What is your level of alcohol consumption? None Information not available 10/04/2021 Are you able to walk independently without assistance or assistive devices? YESWOREST Information not available 10/04/2021 Are you able to care for yourself independently? Yes Information not available 10/04/2021 Do you have difficulty dressing, bathing, grooming, or toileting? No Information not available 10/04/2021 What is your exercise level? Occasional Information not available 10/04/2021 Mental Status Question Answer Note LastModified by Organization D etails LastModified Time Do you feel stressed (tense, restless, nervous, or anxious, or unable to sleep at night)? [id number] Information not available 10/04/2021 Family History Relationship Description Onset Age of [...] Diagnosis SNOMED-CT Code Diagnosis ICD10 Code Diagnosis IMO Codes Diagnosis Note [id number] Shani Oneill , [facility] [address] [address] 10/05/2021 14:00:41 10/05/2021 15:10:51 Urinary symptoms 100619572 R39.9 Will send urine for cx but neg urinary sx's Abdominal distension symptom [id number] R14.0 Today we agreed to update a Abdominal/ Pelvic CT scan for her continuous complaints of abd bloating, gas, distention that has progressiv umberto gotten worse over the past few weeks despite dietary other changes. Likely these issues are GI related vs GRINDER OPERATOR TOOL related due to her Hx of full [...] hysterecto my for this to be a agricultural mechanic related issue but will include CT do [...] this patient s visit, including available hand spiral winder upon arrive, temperatur e check and being [...] Recorded Advance Directives Directive None Recorded Payers Insurance Date Sequence Insurance Name Policy Number Policy Gomes Covered Member ID Gomes Member ID Guarantor Name 10/05/2021 1 [place] Cathy Anderson [id number] Cathy Anderson 10/03/2021 2 [place] 105 Jayden Anderson [id number] Cathy Anderson Notes Date Note Type Note Provider Name and Address Organization Details Recorded Time 2 text/html Abdominal PainReported by PatientAbdominal PainFor quality, patient reportsbloatingandfulln ess. For onset/timing, patient reportsworse. For associated symptoms, patient reportsdecreased appetitebut reportsno fever,no chills,no blood in the urine,no heartburn,no shortness of breath,no nausea,no vomiting,no diarrhea,no constipation,normal stool, andno blood in stool. For location, patient reportsgeneralized(sign ficant notable distention, bloating, flatus, belching.). For severity, patient reportsno pain. For duration, patient reportsconstant (3yrs but feels it has progressively gotten more notable over the last 3mos.). For aggravating factors, patient reportseating (popcorn & inactivity.). For alleviating factors, patient reportsmoving bowels (does have some constipation but has daily bm's, takes colace, fiber, hydrates daily. does not feel having a bm relieves her current sx's necessarily.)andbelchin g (does not relieve this issue but does feel her belching & flatus has significantly increased.). For pain radiation, patient reportsno radiation. For previous tests, treatment and/or diagnostic procedures, patient reportsotc medications (see medication list. no new supplements recently started.)andprescriptio n medication (see list. no new medications started.). For other, (full hysterectomy for repeated abn pap/hpv testing during her 40's.).ROS as noted in the HPI Shani Oneill, [facility]- [address], [place], [address], [place] [facility] 10/05/2021 15:10:40 OBGyn Episode Ob Episode Information Episode Created Date Number of Fetuses Patient Bloodtype Patient rh Status Prepregnancy Weight lbs Domestic Partner Domestic Partner Phone Father Name Financial Center Manager Status 10/05/19 22 1 CLOSED Fetus Data First Name Last Name Admitted to NICU Weight (g) Sex Living Outcome Pediatric Complications Fetus ID Race Codes Race Delivery Type M [id number] Vaginal Delivery Asim Calculation Initial Asim Date [...] Post Complications Tubal Sterilization Discharge Date Comments 6 Discharge Information Feeding Method Contraceptive Method Maternal HG B and HCT Levels Ob Episode Information Episode Created Date Number of Fetuses Patient Bloodtype Patient rh Status Prepregnancy Weight lbs Domestic Partner Domestic Partner Phone Father Name Financial Center Manager Status 10/05/19 22 1 CLOSED Fetus Data First Name Last Name Admitted to NICU Weight (g) Sex Living Outcome Pediatric Complications Fetus ID Race Codes Race Delivery Type M [id number] Vaginal Delivery Asim Calculation Initial Asim Date [...] Post Complications Tubal Sterilization Discharge Date Comments 7 Discharge Information Feeding Method Contraceptive Method Maternal HG B and HCT Levels
--- OUTSIDE RECORDS SUMMARY | 2025-07-02 18:29 | XMS_ITS | Clinical Summary ---
Author Organization [facility] Address [address] [place] [address] Phone Care Team Providers Care Underwriting Operations Manager Name Role Phone Unavailable Primary Care Provider [...] 1-dose 75+ series) 2022 Influenza Immunization (#1) 04/27/202505/27, 06/02/2015, 07/09/2014, Additional history exists SARS-COV-2 Immunization ( season) 2025 06/27/2021, 11/14/2020, 10/24/2020 Hepatitis B Immunization Aged [...]
--- OUTSIDE RECORDS SUMMARY | 2025-07-02 18:29 | XMS_ITS | Clinical Summary ---
Author Organization [facility] Heather fuentes Jadadanikaalex Address [address] [place] [address] Care Team Providers Care Cad Administrator Name Role Phone Lashae Patel MD Primary Care Provider [phone] Allergies Active Allergy Reactions Criticality Noted Date [...] 2020 Insurance MEDICARE PART A AND B [facility] Care Teams Cad Administrator Relationship Specialty Start Date End Date Lashae Patel MD [facility] [place] [address] [address] PCP - General Family Practice 05/14/24
--- OUTSIDE RECORDS SUMMARY | 2025-07-02 18:29 | XMS_ITS | Encounter Summary ---
Author Organization [facility] Address [address] [place] [address] Care Team Providers Care User Experience Lead Name Role Phone Stew Phan MD Unavailable [phone] Lashae Patel MD Primary Care Provider [phone] Reason for Visit * Reason Onset Date Comments Appointment 05/29/2025 Encounter Details Date Type Department Care Team (Late st Contact Info) Description 05/29/2025 Telephone [facility] Orthopedics [facility], [address] [id number] [place] [address] [facility] [address] [address] Appointment Social History Tobacco Use Types Packs/Day Years Used Date Smoking Tobacco: Never Smokeless Tobacco: Never Alcohol Use Standard Drinks/Week Comments Never 0 [...] on file Sexual Orientation Not on file documented as of this encounter Functional Status * Is person deaf or have serious hearing difficulty? Answer Date of Assessment Author No 10/30/2019 11:08 AM Joslyn Hendrix RN * Is person blind or have serious difficulty seeing? Answer Date of Assessment Author No 10/30/2019 11:08 AM Joslyn Hendrix RN * Does person have serious difficulty walking/climbing stairs? Answer Date of Assessment Author No 10/30/2019 11:08 AM Joslyn Hendrix RN * Does person have difficulty dressing/bathing? Answer Date of Assessment Author No 10/30/2019 11:08 AM Joslyn Hendrix RN * Does person have difficulty doing errands alone? Answer Date of Assessment Author No 10/30/2019 11:08 AM Joslyn Hendrix RN documented as of this encounter Mental Status * Does person have difficulty concentrating/remembering/making decisions? Answer Entry Date Author No 10/30/2019 11:08 AM Joslyn Hendrix RN documented in this encounter Plan of Treatment Not on file documented as of this encounter Goals Goal Patient Goal Type Associated Problems Recent Progress Patient-Stated? Author Autogenerat ed Goal Care Plan Autogenerated Problem No Ester Narayanan documented as of this encounter Visit Diagnoses Not on filedocumented in this encounter Additional Health Concerns Active Problems Noted Date Diagnosed Date Autogenerated Problem 03/24/2025 documented as of this encounter Care Teams User Experience Lead Relationship Specialty Start Date End Date Lashae Patel MD [address] [place] [id number] PCP - General Family Medicine 04/10/24 [place] [id number] [place] [address] [place] [id number] Orthopedic Surgery 07/22/19 documented as of this encounter
== END 2025-07-02 10:10 | disposition home or self-care (01) ==
PROVIDERS: PCP Family Medicine; Visit Provider Student in an Organized Health Care Education/Training Program
DX: I51.7 Cardiomegaly (principal); K29.30 Chronic superficial gastritis without bleeding
CPT/HCPCS: 36415; 82728; 83540; 83550